=== PATIENT | male | born 1935 | race Caucasian/White ===

== ENCOUNTER 2021-03-17 13:51 | Outpatient (CLI) | payer OTHER, SELFPAY ==
--- NOTE | 2021-03-17 14:30 | CT_ITS ---
WS: [id number] CT CHEST TECHNIQUE: Noncontrast CT of the chest with coronal and sagittal reformatted images. CLINICAL INFORMATION: lymphadenopathy COMPARISON: None. DLP: 848.[address] scans at [facility] use at least one of these dose optimization techniques: automat ed exposure control; mA and/or kV adjustment per patient size (includes targeted exams where dose is matched to clinical indication); or iterative reconstruction. FINDINGS: Mild chronic emphysematous changes. No acute pulmonary infiltrates. No consolidation or pleural fluid . Calcified granulomas. Calcified right hilar nodes. Aortic calcification. Coronary calcification. No mediastinal or hilar lymphadenopathy. Tiny noncalcified nodule right upper lobe subpleural in loc ation measuring 2 mm. Noncalcified nodule along the right fissure measuring 4 mm. Hepatic granulomas. Splenic granulomas. Normal GE junction. Normal caliber upper abdominal aorta. Adr enal glands are normal. Mild thoracic kyphosis. Hypertrophic changes thoracic spine. CT/CT chest wo con 13400 IMPRESSION: 1. No acute pulmonary infiltrates. No focal pneumonia or pleural fluid. 2. No mediastinal or hilar lymphadenopathy. 3. Tiny noncalcified nodule right upper lobe measuring 2 mm. 4 mm noncalcified nodule along the right major fissure. Recommend 12 month follow-up.
== END 2021-03-17 13:52 | disposition home or self-care (01) ==
PROVIDERS: PCP Emergency Medicine Emergency Medical Services; Visit Provider Internal Medicine Pulmonary Disease
DX: R59.1 Generalized enlarged lymph nodes (principal); R91.1 Solitary pulmonary nodule
CPT/HCPCS: 71250

== ENCOUNTER → 2021-04-13 09:56 | Outpatient (BNVA) | payer OTHER, SELFPAY | PROVIDERS: PCP Emergency Medicine Emergency Medical Services; Visit Provider Internal Medicine Pulmonary Disease | DX: Z01.812 Encounter for preprocedural laboratory examination (principal); Z20.822 Contact with and (suspected) exposure to COVID-19 | CPT/HCPCS: 87635 ==

== ENCOUNTER 2021-04-18 10:33 | Outpatient (CLI) | payer OTHER, SELFPAY ==
--- NOTE | 2021-04-18 12:42 | PFTS_ITS ---
Date of Study:04/18/21 Date of Dictation: MECHANICS: Forced vital capacity (FVC) is reduced. Forced expiratory volume in one second (FEV1) is reduced. FEV1/FVC is reduced. FLOW VOLUME LOOP: Reduced flow at all lung volumes with significant scooping. LUNG VOLUMES: Total lung capacity (TLC) is normal. Residual volume (RV) is decreased. DIFFUSING CAPACITY FOR CARBON MONOXIDE: Mildly reduced. INTERPRETATION: The postbronchodilator spirometry is consistent with severe airflow obstruction. There is no significant postbronchodilator response. Lung volumes are consistent with air trapping. Gas exchange (DLCO) is mildly reduced. MTDD
== END 2021-04-18 10:34 | disposition home or self-care (01) ==
LOC: RT 10:37
PROVIDERS: PCP Emergency Medicine Emergency Medical Services; Visit Provider Internal Medicine Pulmonary Disease
DX: J44.9 Chronic obstructive pulmonary disease, unspecified (principal)
CPT/HCPCS: 94060; 94726; 94729; J7611

== ENCOUNTER → 2021-07-26 13:17 | Outpatient (BNVA) | payer OTHER, SELFPAY | PROVIDERS: PCP Emergency Medicine Emergency Medical Services; Visit Provider Internal Medicine | DX: I48.91 Unspecified atrial fibrillation (principal); I10 Essential (primary) hypertension; R07.9 Chest pain, unspecified | CPT/HCPCS: 80048; 83880 ==

== ENCOUNTER 2021-08-17 11:50 | Emergency (ER) | payer OTHER, SELFPAY ==
[2021-08-17] VITALS (7 sets, daily range): BP systolic 111–126; BP diastolic 54–73; PULSE 64–90; RESP 18–28; TEMP 36.7–36.9; O2SAT 94–97; BMI 22.8
--- NOTE | 2021-08-17 12:40 | XR_ITS ---
WS: [id number] Exam: XR chest 1V portable [id number] Date/Time of Exam: 08/17/2021 12:40 PM Reason For Exam: reports cough/cold like symptoms The lungs are hyperinflated and clear. No acute infiltrates. Scattered calcified granulomas in both l ungs. Cardiomediastinal structures are unremarkable. Regional bony elements are intact. XR/XR chest 1V portable [id number] IMPRESSION: 1. No acute cardiopulmonary finding. 2. Pulmonary hyperinflation which might indicate obstructive lung disease.
--- NOTE | 2021-08-17 12:40 | ED_ITS ---
Documented by User: LAKESHA Ace 08/17/21 14:32 HPI - Extremity Problem General: Chief complaint: Extremity Problem,Nontraumatic Stated complaint: SOB, LLE SWELLING/REDNESS--RULE OUT DVT P/[facility] Time Seen by Provider: 08/17/21 12:34 Source: patient Mode of arrival: ambulatory Limitations: no limitations History of Present Illness: HPI Narrative: Patient is a nice 86-year-old male with a history of atrial fibrillation COPD, and HTN here after he was sent here from Dr. Martin at the [place]. Patient states Dr. aMrtin sent him here secondary to left lower extremity pain, redness and swelling and a concern for a DVT. Patient tells me he chronically has lower extremity swelling. He takes furosemide daily. There is no documented history of CHF. Patient is not the greatest historian but seems to think that he has had the redness for at least a couple of days . No known injury or trauma. Patient tells me he does not feel any more so short of breath than his baseline from his COPD. He is not on oxygen. Patient tells me he does albuterol inhalers prn. Patient has not been running fevers. MD Complaint: extremity pain and extremity swelling Onset (ago): day(s) Location: left and lower extremity Radiation: none Relieving factors: nothing Exacerbating factors: nothing Associated symptoms: Deny chest pain or fever(s) Review of Systems Const: Denies: fever(s), chills, body aches, fatigue or malaise Eyes: Denies: change in vision or blurry vision ENMT: Reports: nasal discharge Card: Reports: edema and swelling of feet/ankles; Denies: chest pain, palpitations, irregular heart rhythm, lightheadedness, syncope or pre-syncope Resp: Reports: dyspnea (chronic-at baseline per patient) and non-productive cough; Denies: pain on inspiration or hemoptysis GI: Denies: abdominal pain, nausea, vomiting or diarrhea Musc: Reports: extremity pain and extremity swelling; Denies: neck pain, back pain, joint pain or joint swelling Skin/Breast: Reports: changes in skin color (L LE) Neuro: Denies: headache(s), numbness in extremities, weakness in extremities, sensory changes, difficulty walking or dizziness [facility] PFSH: Medical History (Updated 08/17/21 @ 14:23 by LAKESHA Ace) Atrial fibrillation Chronic obstructive pulmonary disease Essential hypertension Hypothyroidism Family History Father , heart attack Myocardial infarct Mother Myocardial infarct Social History Smoking and tobacco status: former smoker Quit status (tobacco): has quit using tobacco Year quit tobacco: 1975 [id number] Second hand smoke exposure: Yes Smoking risk assessment/counseling performed?: Yes Alcohol intake: never Lives independently: Yes Household members: none Marital status: / service: Yes Current occupational status: retired Pets and animals: Yes History of recent travel: No Current gender identity: Male Physical Exam Const: COMMON NORMALS: no acute distress, patient oriented x3, no limitations and alert GENERAL APPEARANCE: cooperative ORIENTATION/CONSCIOUSNESS: Yes awake, Yes oriented to person, Yes oriented to place and Yes oriented to time HENMT: COMMON NORMALS: normocephalic and atraumatic HEAD & SCALP: n ormocephalic and atraumatic Resp: COMMON NORMALS: normal respiratory effort EFFORT & INSPECTION: Yes tachypneic, No respiratory distress, No labored, No grunting, No stridor, No Actively coughing, No retractions and No uses accessory muscles AUSCULTATION: wheezes scattered wheezes OTHER: states he doesn't feel any more shortness of breath than usual; states he does prn albuterol inhaler at home Cardio: COMMON NORMALS: regular rate and regular rhythm RATE: regular rate RHYTHM: regular rhythm Extremity: OTHER: pt has bilateral L>R pitting edema; varicosities noted bilaterally; he has erythema/warmth to L lower portion of leg affecting anterior and lateral surfaces and into lateral foot; no lymphangitis present Neuro: NELSON COMA SCALE: document GCS findings [place] coma scale eye opening: Spontaneous [place] coma scale verbal response: Orientated [place] coma scale motor response: Obey commands [place] coma scale total score: 15 COMMON NORMALS: patient oriented x3 SENSORIUM/ORIENTATION: Yes alert, Yes oriented to person, Yes oriented to place and Yes oriented to time Skin: NARRATIVE SKIN EXAM: see extremity assessment for pertinent skin findings Course Consultations: Consultation #1: [facility] agrees with evaluation here and plan for re-ultrasound in 1-2 weeks. Confirms patient is on Pradaxa. Will treat for outpt cellulitis and follow up in office. Vital Signs: Vital signs: Vital Signs Temperature 98.3 F 08/17/21 14:46 Pulse Rate 64 08/17/21 14:46 Respiratory Rate 22 H 08/17/21 14:46 Blood Pressure 111/54 08/17/21 14:46 Pulse Oximetry 97 08/17/21 14:46 MDM - Extremity (Nontraumatic) MDM Narrative: Medical decision making narrative: Patient is a nice 86-year-old male here at the request of Dr. Martin from the [place] for evaluation of his left lower leg swelling and redness. Patient tells me he chronically has swelling to his bilateral lower extremities. He has noticed over the past few days swelling worsening to the left leg and has also noticed redness and warmth. Clinically leg appears cellulitic. Ultrasound of his lower extremity shows a superficial thrombus to his GSV but no DVT. Because this thrombus is within 3 cm of the saphenofemoral junction he would require anticoagulation however patient already takes Pradaxa twice daily. Verified with the [facility] that he is still taking this. Patient is not febrile or tachycardic. White count is 14.5. I think it is reasonable to treat him for an outpatient cellulitis at this time. He was given an initial IV vancomycin dose here. Will follow up with Dr. Martin at the [place] next week for re-evaluation and schedule repeat US imaging. He is not complaining of SOB at this time. CXR stable. BNP close to baseline. Lab Data: Labs: Lab Results 08/17/21 08/17/21 08/17/21 12:43 12:43 12:51 WBC 14.5 10^3/uL H 10 ^3/uL (4.0-10.0) RBC 5.10 10^6/uL 10^6 /uL (4.1-5.3) Hgb 14.4 g/dL g/dL (11.7-16.6) Hct 45.3 % % (42.0-52.0) MCV 88.8 fl fl (80-94) MCH 28.2 pg pg (28.0-34.0) MCHC 31.8 g/dL g/dL (30.0-36.0) RDW 15.8 % H % (12.1-15.1) Plt Count 220 10^3/cmm 10^3 /cmm (130-400) MPV 9.0 fL fL (7.4-10.4) Neut % (Auto) 86.6 % % Lymph % (Auto) 5.8 % % Baldwin % (Auto) 4.7 % % Eos % (Auto) 0.1 % % Baso % (Auto) 0.3 % % Neut # (Auto) 12.56 10^3/uL H 1 0^3/uL (1.8-7.7) Lymph # (Auto) 0.9 10^3/uL 10^3/ uL (0.8-4.8) Baldwin # (Auto) 0.7 10^3/uL 10^3/ uL (0.2-0.9) Eos # (Auto) 0.0 10^3/uL 10^3/ uL (0.0-0.8) Baso # (Auto) 0.1 10^3/uL 10^3/ uL (0.0-0.1) Nucleated RBC % (a uto) 0 % % Nucleated RBCs # 0.0 /100WBC /100W BC Sodium 136 mmol/L mmol/L (136-145) Potassium 4.4 mmol/L mmol/L (3.5-5.1) Chloride 99 mmol/L mmol/L (98-107) Carbon Dioxide 30 mmol/L H mmol/ L (22-29) Anion Gap 11.4 (5-19) BUN 18 mg/dL mg/dL (8-23) Creatinine 0.7 mg/dL mg/dL (0.7-1.2) GFR Calculation Not Reportable Glucose 88 mg/dL mg/dL (65-115) Calculated Osmolal ity 283 mOsm/kg L mOs m/kg (285-295) Calcium 8.6 mg/dL mg/dL (8.5-10.5) Total Bilirubin 0.6 mg/dL mg/dL (0.15-1.2) AST 12 U/L U/L (0-40) ALT 16 U/L U/L (0-41) Alkaline Phosphata se 67 IU/L IU/L (40-130) C-Reactive Protein 102.9 mg/L H mg/L (0.0-4.9) NT-Pro-B Natriuret Pep 630 pg/mL H pg/mL (0-450) Total Protein 5.9 g/dL L g/dL (6.6-8.7) Albumin 3.5 g/dL g/dL (3.5-5.2) Globulin 2.4 g/dL g/dL (1.3-4.6) SARS-CoV-2 Ag (Rap id) Negative (Negative) Imaging Data^: CXR: Radiologist's impression: [facility] HospitalHira [place], [place] [address]TXug ReportSigned Patient: Naseem Mckeon #: [id number]: 7Acct#:[id number]/Sex: 86 / MADM Date: 08/17/21Loc: ERRoom/Bed:Attending Dr: Ordering Provider/Ordering MD: Vanessa Patel Date of Service: 08/17/21 Procedure(s): XR chest 1V portable [id number] Accession Number(s): [id number] Report Number: [id number] WS: [id number] Exam: XR chest 1V portable [id number] Date/Time of Exam: 08/17/2021 12:40 PM Reason For Exam: reports cough/cold like symptoms The lungs are hyperinflated and clear. No acute infiltrates. Scattered calcified granulomas in both lungs. Cardiomediastinal structures are unremarkable. Regional bony elements are intact. XR/XR chest 1V portable [id number] IMPRESSION: 1. No acute cardiopulmonary finding. 2. Pulmonary hyperinflation which might indicate obstructive lung disease. Dictated By:Ron Yang, ABELigned By:Ron Yang, ABELigned Date/Time:08/17/21 1256DD/ 1253 L LE venous US: Radiologist's impression: [facility] HospitalHira [place], [place] [address]Wfobjidudr ReportSigned Patient: Naseem Mckeon #: [id number]: [id number]#:[id number]/Sex: 86 / MADM Date: 08/17/21Loc: ERRoom/Bed:Attending Dr: Ordering Provider/Ordering MD: Vanessa Patel Date of Service: 08/17/21 Procedure(s): [place] [id number] Accession Number(s): [id number] Report Number: [id number] Hao Mckeon Age: 86 Gender: M : 1935 Exam Date: 08/17/2021 13:04 Ordering Phys: Vanessa Patel Technologist: Exam Location: [facility] Indication: LLE PAIN HISTORY: Lower extremity swelling. Lower extremity edema. PROCEDURES: Venous duplex imaging was performed in only the left lower extremity. The following venous structures were evaluated: common femoral vein, profunda vein, proximal portion of the greater saphenous vein, superficial femoral vein, and the popliteal vein. In addition, the posterior tibial and peroneal trunk were evaluated. Serial compression, augmentation maneuvers, and spectral Doppler flow evaluation were performed. FINDINGS: Normal 2-D Doppler and augmentation and compressibility throughout the lower extremity venous structures. Additional imaging through the proximal calf veins also reveals no thrombus. Left LSV non-compressible from prox-dist. Thrombus ends 2.9 cm from CFV junction. CONCLUSIONS No DVT left lower extremity. Left GSV superficial thrombophlebitis, thrombus 2.9 cm from the CFV. Dr. Feli Gautam DO (Electronically Signed) Final Date: 17 August 2021 13:51 Discharge Plan Discharge Patient Disposition: Home Clinical Impression: Superficial thrombosis of left lower extremity, Cellulitis of left anterior lower leg Condition: Stable Prescriptions: New amoxicillin 500 mg capsule 500 mg PO BID 7 Days Qty: 14 RF: 0 doxycycline monohydrate 100 mg capsule 100 mg PO Q12H 7 Days Qty: 14 RF: 0 No Action cholecalciferol (vitamin D3) 25 mcg (1,000 unit) capsule 25 mcg PO DAILY RF: 0 diltiazem HCl 240 mg capsule,extended release 24hr 240 mg PO DAILY RF: 0 levothyroxine 125 mcg capsule 125 mcg PO DAILY RF: 0 meloxicam 7.5 mg tablet 7.5 mg PO DAILY RF: 0 metronidazole 0.75 % cream 1 applic topical DAILY RF: 0 prednisolone acetate 1 % drops,suspension 1 drp ophthalmic (eye) BID RF: 0 ipratropium-albuterol 0.5 mg-3 mg(2.5 mg base)/3 mL solution for nebulization 3 ml inhalation QID PRN (Reason: shortness of breath) Qty: 90 RF: 3 Combivent Respimat 20-100 mcg/actuation mist 1 puff inhalation Q6H PRN (Reason: shortness of breath or wheezing) Qty: 4 R F: 3 Spiriva Respimat 2.5 mcg/actuation mist 2 puff inhalation DAILY Qty: 4 RF: 3 furosemide 20 mg tablet 20 mg PO DAILY Qty: 90 RF: 2 amlodipine 5 mg tablet 5 mg PO DAILY Qty: 90 RF: 0 Pradaxa 150 mg capsule 150 mg PO BID Qty: 180 RF: 0 Discharge Orders: Discharge ED (Routine); Ordered 08/17/21 Ordered By: Vanessa Patel Referrals: Cooper Martin, [Primary Care Provider] - Patient Instructions: Cellulitis (ED), Superficial Thrombophlebitis (ED) Activity Restrictions/Additional Instructions: As we discussed please fill both of your antibiotics and start them today. Both antibiotics are for one pill twice daily. [facility] management will work [facility] As we discussed you need to return to the emergency department in 48 to 72 hours if redness on your leg continues to spread. You need to return sooner for severe pain, shortness of breath, difficulty breathing, fevers greater than 100.4, or any other concerns you may have. Coding Level of Care Code ED Substation Operator Helper for Chg Fwd Exam Detailed Documented by User: Driss Conrad MD 08/17/21 15:29 HPI - Extremity Problem General: Chief complaint: Extremity Problem,Nontraumatic Stated complaint: SOB, LLE SWELLING/REDNESS--RULE OUT DVT P/[facility] Time Seen by Provider: 08/17/21 12:34 PFSH ED PFSH: Medical History (Updated 08/17/21 @ 14:23 by LAKESHA Ace) Atrial fibrillation Chronic obstructive pulmonary disease Essential hypertension Hypothyroidism Family History Father , heart attack Myocardial infarct Mother Myocardial infarct Social History Smoking and tobacco status: former smoker Quit status (tobacco): has quit using tobacco Year quit tobacco: 1975 [id number] Second hand smoke exposure: Yes Smoking risk assessment/counseling performed?: Yes Alcohol intake: never Lives independently: Yes Household members: none Marital status: / service: Yes Current occupational status: retired Pets and animals: Yes History of recent travel: No Current gender identity: Male Course Vital Signs: Vital signs: Vital Signs Temperature 98.3 F 08/17/21 14:46 Pulse Rate 64 08/17/21 14:46 Respiratory Rate 22 H 08/17/21 14:46 Blood Pressure 111/54 08/17/21 14:46 Pulse Oximetry 97 08/17/21 14:46 MDM - Extremity (Nontraumatic) Lab Data: Labs: Lab Results 08/17/21 08/17/21 08/17/21 12:43 12:43 12:51 WBC 14.5 10^3/uL H 10 ^3/uL (4.0-10.0) RBC 5.10 10^6/uL 10^6 /uL (4.1-5.3) Hgb 14.4 g/dL g/dL (11.7-16.6) Hct 45.3 % % (42.0-52.0) MCV 88.8 fl fl (80-94) MCH 28.2 pg pg (28.0-34.0) MCHC 31.8 g/dL g/dL (30.0-36.0) RDW 15.8 % H % (12.1-15.1) Plt Count 220 10^3/cmm 10^3 /cmm (130-400) MPV 9.0 fL fL (7.4-10.4) Neut % (Auto) 86.6 % % Lymph % (Auto) 5.8 % % Baldwin % (Auto) 4.7 % % Eos % (Auto) 0.1 % % Baso % (Auto) 0.3 % % Neut # (Auto) 12.56 10^3/uL H 1 0^3/uL (1.8-7.7) Lymph # (Auto) 0.9 10^3/uL 10^3/ uL (0.8-4.8) Baldwin # (Auto) 0.7 10^3/uL 10^3/ uL (0.2-0.9) Eos # (Auto) 0.0 10^3/uL 10^3/ uL (0.0-0.8) Baso # (Auto) 0.1 10^3/uL 10^3/ uL (0.0-0.1) Nucleated RBC % (a uto) 0 % % Nucleated RBCs # 0.0 /100WBC /100W BC Sodium 136 mmol/L mmol/L (136-145) Potassium 4.4 mmol/L mmol/L (3.5-5.1) Chloride 99 mmol/L mmol/L (98-107) Carbon Dioxide 30 mmol/L H mmol/ L (22-29) Anion Gap 11.4 (5-19) BUN 18 mg/dL mg/dL (8-23) Creatinine 0.7 mg/dL mg/dL (0.7-1.2) GFR Calculation Not Reportable Glucose 88 mg/dL mg/dL (65-115) Calculated Osmolal ity 283 mOsm/kg L mOs m/kg (285-295) Calcium 8.6 mg/dL mg/dL (8.5-10.5) Total Bilirubin 0.6 mg/dL mg/dL (0.15-1.2) AST 12 U/L U/L (0-40) ALT 16 U/L U/L (0-41) Alkaline Phosphata se 67 IU/L IU/L (40-130) C-Reactive Protein 102.9 mg/L H mg/L (0.0-4.9) NT-Pro-B Natriuret Pep 630 pg/mL H pg/mL (0-450) Total Protein 5.9 g/dL L g/dL (6.6-8.7) Albumin 3.5 g/dL g/dL (3.5-5.2) Globulin 2.4 g/dL g/dL (1.3-4.6) SARS-CoV-2 Ag (Rap id) Negative (Negative) Discharge Plan Discharge Patient Disposition: Home Clinical Impression: Superficial thrombosis of left lower extremity, Cellulitis of left anterior lower leg Condition: Stable Prescriptions: New amoxicillin 500 mg capsule 500 mg PO BID 7 Days Qty: 14 RF: 0 doxycycline monohydrate 100 mg capsule 100 mg PO Q12H 7 Days Qty: 14 RF: 0 No Action cholecalciferol (vitamin D3) 25 mcg (1,000 unit) capsule 25 mcg PO DAILY RF: 0 diltiazem HCl 240 mg capsule,extended release 24hr 240 mg PO DAILY RF: 0 levothyroxine 125 mcg capsule 125 mcg PO DAILY RF: 0 meloxicam 7.5 mg tablet 7.5 mg PO DAILY RF: 0 metronidazole 0.75 % cream 1 applic topical DAILY RF: 0 prednisolone acetate 1 % drops,suspension 1 drp ophthalmic (eye) BID RF: 0 ipratropium-albuterol 0.5 mg-3 mg(2.5 mg base)/3 mL solution for nebulization 3 ml inhalation QID PRN (Reason: shortness of breath) Qty: 90 RF: 3 Combivent Respimat 20-100 mcg/actuation mist 1 puff inhalation Q6H PRN (Reason: shortness of breath or wheezing) Qty: 4 RF: 3 Spiriva Respimat 2.5 mcg/actuation mist 2 puff inhalation DAILY Qty: 4 RF: 3 furosemide 20 mg tablet 20 mg PO DAILY Qty: 90 RF: 2 amlodipine 5 mg tablet 5 mg PO DAILY Qty: 90 RF: 0 Pradaxa 150 mg capsule 150 mg PO BID Qty: 180 RF: 0 Discharge Orders: Discharge ED (Routine); Ordered 08/17/21 Ordered By: Vanessa Patel Referrals: Cooper Martin DO [Primary Care Provider] - Patient Instructions: Cellulitis (ED), Superficial Thrombophlebitis (ED) Activity Restrictions/Additional Instructions: As we discussed please fill both of your antibiotics and start them today. Both antibiotics are for one pill twice daily. Case management will work [facility] As we discussed you need to return to the emergency department in 48 to 72 hours if redness on your leg continues to spread. You need to return sooner for severe pain, shortness of breath, difficulty breathing, fevers greater than 100.4, or any other concerns you may have. Coding Level of Care Code ED Substation Operator Helper for Chg Fwd Exam Detailed
[2021-08-17 12:52] LABS: Basophils # 0.1 10^3/uL (0.0-0.1); Basophils % 0.3 %; Eosinophils % 0.1 %; Hematocrit 45.3 % (42.0-52.0); Hemoglobin 14.4 g/dL (11.7-16.6); Lymphocytes # 0.9 10^3/uL (0.8-4.8); Lymphocytes % 5.8 %; Mean Corpuscular HGB Conc 31.8 g/dL (30.0-36.0); Mean Corpuscular Hemoglobin 28.2 pg (28.0-34.0); Mean Corpuscular Volume 88.8 fl (80-94); Monocytes # 0.7 10^3/uL (0.2-0.9); Monocytes % 4.7 %; Neutrophils # 12.56 10^3/uL (1.8-7.7); Neutrophils % 86.6 %; Nucleated Red Blood Cells % 0 %; Platelet Count 220 10^3/cmm (130-400); Red Cell Distribution Width 15.8 % (12.1-15.1); White Blood Count 14.5 10^3/uL (4.0-10.0)
[2021-08-17 13:27] LABS: Alanine Aminotransferase 16 U/L (0-41); Albumin Level 3.5 g/dL (3.5-5.2); Alkaline Phosphatase 67 IU/L (40-130); Anion Gap 11.4 (5-19); Aspartate Amino Transferase 12 U/L (0-40); Blood Urea Nitrogen 18 mg/dL (8-23); C Reactive Protein 102.9 mg/L (0.0-4.9); Calcium 8.6 mg/dL (8.5-10.5); Carbon Dioxide 30 mmol/L (22-29); Chloride 99 mmol/L (98-107); Globulin 2.4 g/dL (1.3-4.6); Glucose 88 mg/dL (65-115); NT Pro B Type Natriuretic Pept 630 pg/mL (0-450); Osmolality Calculated 283 mOsm/kg (285-295); Potassium 4.4 mmol/L (3.5-5.1); Sodium 136 mmol/L (136-145); Total Bilirubin 0.6 mg/dL (0.15-1.2); Total Protein 5.9 g/dL (6.6-8.7)
[2021-08-17 13:27] LABS: SARS Covid-2 Antigen Negative (Negative)
[2021-08-17] MEDS: vancomycin 1,000 MG in sodium chloride 0.9% 250 ML 250 MG IV (13:44)
--- NOTE | 2021-08-18 12:45 | DCPLANNER ---
grain commodity manager had message to schedule a follow up appointment for patient with [facility]. grain commodity manager sent patients information to [facility]. February will let child welfare caseworker know if child welfare caseworker needs to do anything to schedule the appointment.
== END 2021-08-17 15:00 | disposition home or self-care (01) ==
PROVIDERS: Emergency Provider Physician Assistant; PCP Emergency Medicine Emergency Medical Services
DX: L03.116 Cellulitis of left lower limb (principal); I82.812 Embolism and thrombosis of superficial veins of left lower extremity; J44.9 Chronic obstructive pulmonary disease, unspecified; I10 Essential (primary) hypertension; Z87.891 Personal history of nicotine dependence; Z20.822 Contact with and (suspected) exposure to COVID-19
CPT/HCPCS: 36415; 71045; 80053; 83880; 85025; 86140; 87040; 87426; 93971; 94640; 96360; 99283; J3370; J7050; J7611

== ENCOUNTER 2021-08-20 10:24 | Inpatient (IN) | payer OTHER, MEDICARE, SELFPAY ==
[2021-08-20] VITALS (11 sets, daily range): BP systolic 118–150; BP diastolic 58–84; PULSE 71–88; RESP 15–28; TEMP 36.3–36.9; O2SAT 93–98; BMI 23.0
--- NOTE | 2021-08-20 10:59 | W.ED.EXTPRO ---
Documented by User: LAKESHA Castro 08/21/21 07:14 HPI - Extremity Problem General: Chief complaint: Extremity Problem,Nontraumatic Stated complaint: LEG SWELLING Time Seen by Provider: 08/20/21 10:48 History of Present Illness: HPI Narrative: Patient is an 86-year-old male comes to the ED with left leg swelling and pain. Patient was seen here in the ED back on August 17 and diagnosed with a superficial thrombophlebitis and cellulitis. Patient is currently on dabigatran, amoxicillin and doxycycline. Patient has been taking his meds accordingly and has still not seen any improvement. His pain in the left leg was so bad last night that he had trouble sleeping. Patient has a history of COPD and has a DuoNeb breathing treatments at home. Patient does not wear any oxygen at home. Associated symptoms: Deny chest pain, fever(s) or rash Review of Systems Const: Denies: fever(s), chills or fatigue Eyes: Denies: change in vision or eye discomfort ENMT: Denies: throat pain, odynophagia, nasal discharge or nasal congestion Card: Denies: chest pain, palpitations, edema, swelling of feet/ankles, dyspnea on exertion or orthopnea Resp: Denies: dyspnea, productive cough or non-productive cough GI: Denies: abdominal pain, nausea, vomiting, diarrhea, constipation or hematochezia : Denies: flank pain, difficulty urinating, dysuria or hematuria Musc: Reports: extremity pain (Left leg) and extremity swelling (Left leg); Denies: neck pain or back pain Skin/Breast: Denies: rash or new lesions Neuro: Denies: headache(s), numbness in extremities or weakness in extremities PFS ED PFSH: Medical History Atrial fibrillation Chronic obstructive pulmonary disease Essential hypertension Hypothyroidism Family History Father , heart attack Myocardial infarct Mother Myocardial infarct Social History Smoking and tobacco status: former smoker Quit status (tobacco): has quit using tobacco Year quit tobacco: 1975 [id number] Second hand smoke exposure: Yes Smoking risk assessment/counseling performed?: Yes Alcohol intake: never Lives independently: Yes Household members: none Marital status: / service: Yes Current occupational status: retired Pets and animals: Yes History of recent travel: No Current gender identity: Male Physical Exam Const: COMMON NORMALS: no acute distress, patient oriented x3 and alert GENERAL APPEARANCE: cooperative and comfortable HENMT: COMMON NORMALS: normocephalic HEAD & SCALP: normocephalic MOUTH: Normal oral and palatal mucosa present THROAT: posterior oropharynx normal and uvula midline OTHER: Patient has baseline hearing loss. You have to talk loud for patient to understand you. Eye: COMMON NORMALS: Equal, round and reactive pupils present PUPIL: Yes Equal, round and reactive pupils present Neck/C-Spine: COMMON NORMALS: supple GENERAL: Yes normal visual inspection Resp: COMMON NORMALS: normal respiratory effort, No retractions, No use of accessory muscles and clear to auscultation bilaterally AUSCULTATION: clear to auscultation bilaterally Cardio: COMMON NORMALS: regular rate, regular rhythm, S1 normal heart sound present, S2 normal heart sound present, No gallops present (Cardio), No clicks present (Cardio), No murmurs present (Cardio) and Peripheral pulses 2+ throughout RATE: regular rate RHYTHM: regular rhythm HEART SOUNDS: S1 normal heart sound present and S2 normal heart sound present PERIPHERAL PULSES: Peripheral pulses 2+ throughout GI: COMMON NORMALS: Normal to inspection, nondistended, normoactive bowel sounds present, Soft to palpation, non-tender and no masses PALPATION: Yes Soft to palpation : COMMON NORMALS: Yes no CVA tenderness BLADDER/KIDNEY EXAM: Yes no CVA tenderness Back/Pelvis: COMMON NORMALS: no CVA tenderness Extremity: GENERAL: Yes normal exam except as noted and Yes edema (Left leg 2+ pitting edema) Neuro: COMMON NORMALS: patient oriented x3 and moves all extremities SENSORIUM/ORIENTATION: Yes alert Skin: NARRATIVE SKIN EXAM: Left leg?lateral aspect has some erythema, warmth and swelling along with tenderness. Findings suggestive of cellulitis. GENERAL SKIN EXAM: dry skin Course Vital Signs: Vital signs: Vital Signs Temperature 97.5 F L 08/22/21 12:32 Pulse Rate 96 08/22/21 12:32 Respiratory Rate 19 H 08/22/21 12:32 Blood Pressure 120/67 08/22/21 12:32 Pulse Oximetry 92 08/22/21 12:32 MDM - Extremity (Nontraumatic) MDM Narrative: Medical decision making narrative: Patient is a 89-year-old male who comes to the ED with left lower leg cellulitis. Patient was seen here on August 17 and given a dose of IV Vanco and sent home on doxycycline and amoxicillin. Patient has been taking both medications accordingly and he has had no improvement. Patient returns to the ED after failing outpatient treatment. Vitals are stable. White blood cell count 11.5 and CRP of 67.2. The rest of the labs were unremarkable. I talked with Dr. Camejo about pt case and he agreed to have patient admitted for to treat his cellulitis and see failed outpatient treatment. Dr. Camejo contacted the hospitalist and had pt admitted. Lab Data: Attestation: I reviewed the patient's lab results. Labs: Lab Results 08/20/21 08/20/21 08/20/21 11:10 11:35 11:35 WBC 11.5 10^3/uL H 10 ^3/uL (4.0-10.0) RBC 4.75 10^6/uL 10^6 /uL (4.1-5.3) Hgb 13.4 g/dL g/dL (11.7-16.6) Hct 42.8 % % (42.0-52.0) MCV 90.1 fl fl (80-94) MCH 28.2 pg pg (28.0-34.0) MCHC 31.3 g/dL g/dL (30.0-36.0) RDW 15.5 % H % (12.1-15.1) Plt Count 195 10^3/cmm 10^3 /cmm (130-400) MPV 9.1 fL fL (7.4-10.4) Neut % (Auto) 79.1 % % Lymph % (Auto) 10.1 % % Brewster % (Auto) 8.1 % % Eos % (Auto) 1.0 % % Baso % (Auto) 0.3 % % Neut # (Auto) 9.11 10^3/uL H 10 ^3/uL (1.8-7.7) Lymph # (Auto) 1.2 10^3/uL 10^3/ uL (0.8-4.8) Brewster # (Auto) 0.9 10^3/uL 10^3/ uL (0.2-0.9) Eos # (Auto) 0.1 10^3/uL 10^3/ uL (0.0-0.8) Baso # (Auto) 0.0 10^3/uL 10^3/ uL (0.0-0.1) Nucleated RBC % (a uto) 0 % % Nucleated RBCs # 0.0 /100WBC /100W BC Specimen Type Sample Site ABG pH ABG pCO2 ABG pO2 ABG HCO3 ABG O2 Saturation ABG Base Excess Pietro Test A-a O2 Gradient Hematocrit Hgb O2 Saturation Carboxyhemoglobin Methemoglobin Total Hemoglobin Ionized Calcium O2 Delivery Device FiO2 Inspector Set Up And Lay Out ID Sodium 140 mmol/L mmol/L (136-145) Potassium 4.1 mmol/L mmol/L (3.5-5.1) Chloride 102 mmol/L mmol/L (98-107) Carbon Dioxide 32 mmol/L H mmol/ L (22-29) Anion Gap 10.1 (5-19) BUN 18 mg/dL mg/dL (8-23) Creatinine 0.8 mg/dL mg/dL (0.7-1.2) GFR Calculation Not Reportable Glucose 89 mg/dL mg/dL (65-115) Calculated Osmolal ity 291 mOsm/kg mOsm/ kg (285-295) Lactic Acid Calcium 8.9 mg/dL mg/dL (8.5-10.5) Total Bilirubin 0.8 mg/dL mg/dL (0.15-1.2) AST 13 U/L U/L (0-40) ALT 15 U/L U/L (0-41) Alkaline Phosphata se 59 IU/L IU/L (40-130) C-Reactive Protein 67.2 mg/L H mg/L (0.0-4.9) Total Protein 5.4 g/dL L g/dL (6.6-8.7) Albumin 3.3 g/dL L g/dL (3.5-5.2) Globulin 2.1 g/dL g/dL (1.3-4.6) Urine Color Yellow (Yellow) Urine Appearance Clear (CLEAR) Urine pH 6 (5-7) Ur Specific Gravit y 1.020 (1.005-1.030) Urine Protein Neg (Negative) Urine Glucose (UA) Norm (Normal) Urine Ketones Negative (Negative) Urine Blood Neg (Negative) Urine Nitrate Negative (Negative) Urine Bilirubin Neg (Negative) Urine Urobilinogen 4 mg/dL H mg/dL (Negative) Ur Leukocyte Monisha ase Negative (Negative) 08/20/21 08/20/21 11:35 14:17 WBC RBC Hgb Hct MCV MCH MCHC RDW Plt Count MPV Neut % (Auto) Lymph % (Auto) Brewster % (Auto) Eos % (Auto) Baso % (Auto) Neut # (Auto) Lymph # (Auto) Brewster # (Auto) Eos # (Auto) Baso # (Auto) Nucleated RBC % (a uto) Nucleated RBCs # Specimen Type Arterial Sample Site Radial, left ABG pH 7.45 (7.35-7.45) ABG pCO2 38.1 mmHg mmHg (35-45) ABG pO2 80.1 mmHg mmHg (80.0-100.0) ABG HCO3 26.4 mmol/L H mmo l/L (22-26) ABG O2 Saturation 97.2 ABG Base Excess 2.4 mmol/L H mmol /L (-2.0-2.0) Pietro Test Pos A-a O2 Gradient 2.8 mmHg L mmHg (5-10) Hematocrit 41.9 % L % (42-52) Hgb O2 Saturation 95.5 % % (95-100) Carboxyhemoglobin 1.3 %THgb %THgb (0.4-20.1) Methemoglobin 0.5 % % (0.4-1.5) Total Hemoglobin 13.7 g/dL L g/dL (14-18) Ionized Calcium 1.2 mmol/L mmol/L (1.1-1.4) O2 Delivery Device Room air FiO2 21.0 % % Inspector Set Up And Lay Out ID glc Sodium 139.0 mmol/L mmol /L (131-143) Potassium 4.0 mmol/L mmol/L (3.5-5.0) Chloride Carbon Dioxide Anion Gap BUN Creatinine GFR Calculation Glucose 106.0 mg/dL mg/dL (70-115) Calculated Osmolal ity Lactic Acid 0.8 mmol/L mmol/L (0.5-2.2) Calcium Total Bilirubin AST ALT Alkaline Phosphata se C-Reactive Protein Total Protein Albumin Globulin Urine Color Urine Appearance Urine pH Ur Specific Gravit y Urine Protein Urine Glucose (UA) Urine Ketones Urine Blood Urine Nitrate Urine Bilirubin Urine Urobilinogen Ur Leukocyte Monisha ase Imaging Data^: US Vascular: Attestation: I personally reviewed and interpreted this imaging study as follows: Radiologist's impression: [id number] [place], [place] [address]Hnbajsxrdn ReportSigned Patient: Nsaeem Mckeon #: [id number]: [id number]#:[id number]/Sex: 86 / MADM Date: 08/20/21Loc: ERRoom/Bed:Attending Dr: Ordering Provider/Ordering MD: Van Hernández Date of Service: 08/20/21 Procedure(s): [place] [address] Accession Number(s): [id number] Report Number: [id number] PROCEDURE INFORMATION: Exam: US Duplex Left Lower Extremity Veins, Limited Exam date and time: 08/20/2021 11:10 AM Age: 86 years old Clinical indication: Swelling (edema) of limb; Lower extremity, left; Patient HX: Prior exam done on 08-17-2021; Additional info: Left lower leg swelling TECHNIQUE: Imaging protocol: Real-time Duplex ultrasound of the Left Lower Extremity with 2-D muñoz scale, color Doppler flow and spectral waveform analysis with image documentation. Limited exam focused on the left lower extremity veins. COMPARISON: No relevant prior studies available. FINDINGS: Left deep veins: Unremarkable. The common femoral, femoral, proximal profunda femoral, popliteal, posterior tibial and peroneal veins are patent without thrombus. Normal compressibility, augmentation response and Doppler waveforms. Left superficial veins: Heterogeneously echogenic, nonocclusive thrombus in the greater saphenous vein below the knee. Saphenofemoral junction is patent without thrombus. Soft tissues: Subcutaneous edema in the calf. US/[place] [id number] IMPRESSION: 1. No sonographic evidence of deep vein thrombosis. 2. Heterogeneously echogenic, nonocclusive thrombus in the greater saphenous vein below the knee. Dictated By:Harman Oliver MDSigned By:Harman Oliver MDSigned Date/Time:08/20/21 1244DD/ 1243 CXR: Attestation: I personally reviewed and interpreted this imaging study as follows: Radiologist's impression: [id number] [facility], [place] [address]UHjx ReportSigned Patient: Naseem Mckeon #: [id number]: 1935cct#:[id number]/Sex: 86 / MADM Date: 08/20/21Loc: ERRoom/Bed:Attending Dr: Ordering Provider/Ordering MD: Van Hernández Date of Service: 08/20/21 Procedure(s): XR chest 1V portable [id number] Accession Number(s): [id number] Report Number: [id number] PROCEDURE INFORMATION: Exam: XR Chest Exam date and time: 08/20/2021 1:25 PM Age: 86 years old Clinical indication: Shortness of breath; Additional info: SOB TECHNIQUE: Imaging protocol: XR of the chest. Views: 1 view. COMPARISON: CR XR chest 1V portable [id number] 08/17/2021 12:47 PM FINDINGS: Lungs: Hyperinflated. Scattered calcified granulomata, similar to prior. Streaky opacities at the lung bases with blunting of the right costophrenic angle, likely secondary to atelectasis and/or scarring.No consolidation. Pleural spaces: Unremarkable. No pleural effusion. No pneumothorax. Heart/Mediastinum: Unremarkable. No cardiomegaly. Bones/joints: No acute osseous abnormality. Osteopenia. Degenerative changes of the spine and shoulders. XR/XR chest 1V portable [id number] IMPRESSION: No acute radiographic findings. Dictated By:Harman Oliver MDSigned By:Harman Oliver MDSigned Date/Time:08/20/21 1429DD/ 1428 Discharge Plan Discharge Patient Disposition: Admitted As Inpatient Admit Provider: Quyen Dahl Clinical Impression: Cellulitis of left anterior lower leg Condition: Stable Discharge Diet: Cardiac Discharge Activity: Use walker/crutches as instructed and As per PT/OT instructions Sign Out Sign Out Data: Patient Sign Out occurred on 08/20/21 at 17:38. Patient's care was discussed, and care was transferred from to Lorne Camejo MD. Coding Level of Care Code ED Vessel Traffic Officer for Chg Fwd Exam Comprehensive Documented by User: Lorne Camejo MD 08/23/21 12:22 HPI - Extremity Problem General: Chief complaint: Extremity Problem,Nontraumatic Stated complaint: LEG SWELLING Time Seen by Provider: 08/20/21 10:48 [facility] ED PFSH: Medical History Atrial fibrillation Chronic obstructive pulmonary disease Essential hypertension Hypothyroidism Family History Father , heart attack Myocardial infarct Mother Myocardial infarct Social History Smoking and tobacco status: former smoker Quit status (tobacco): has quit using tobacco Year quit tobacco: 1975 [id number] Second hand smoke exposure: Yes Smoking risk assessment/counseling performed?: Yes Alcohol intake: never Lives independently: Yes Household members: none Marital status: / service: Yes Current occupational status: retired Pets and animals: Yes History of recent travel: No Current gender identity: Male Course Vital Signs: Vital signs: Vital Signs Temperature 97.5 F L 08/22/21 12:32 Pulse Rate 96 08/22/21 12:32 Respiratory Rate 19 H 08/22/21 12:32 Blood Pressure 120/67 08/22/21 12:32 Pulse Oximetry 92 08/22/21 12:32 MDM - Extremity (Nontraumatic) MDM Narrative: Medical decision making narrative: I discussed the case with LAKESHA Castro. I have reviewed the above documentation and reperformed miramontes parts of ED encounter. Patient requires admission for cellulitis that failed outpatient therapy. Lorne Camejo MD Emergency Medicine Lab Data: Labs: Lab Results 08/20/21 08/20/21 08/20/21 11:10 11:35 11:35 WBC 11.5 10^3/uL H 10 ^3/uL (4.0-10.0) RBC 4.75 10^6/uL 10^6 /uL (4.1-5.3) Hgb 13.4 g/dL g/dL (11.7-16.6) Hct 42.8 % % (42.0-52.0) MCV 90.1 fl fl (80-94) MCH 28.2 pg pg (28.0-34.0) MCHC 31.3 g/dL g/dL (30.0-36.0) RDW 15.5 % H % (12.1-15.1) Plt Count 195 10^3/cmm 10^3 /cmm (130-400) MPV 9.1 fL fL (7.4-10.4) Neut % (Auto) 79.1 % % Lymph % (Auto) 10.1 % % Brewster % (Auto) 8.1 % % Eos % (Auto) 1.0 % % Baso % (Auto) 0.3 % % Neut # (Auto) 9.11 10^3/uL H 10 ^3/uL (1.8-7.7) Lymph # (Auto) 1.2 10^3/uL 10^3/ uL (0.8-4.8) Brewster # (Auto) 0.9 10^3/uL 10^3/ uL (0.2-0.9) Eos # (Auto) 0.1 10^3/uL 10^3/ uL (0.0-0.8) Baso # (Auto) 0.0 10^3/uL 10^3/ uL (0.0-0.1) Nucleated RBC % (a uto) 0 % % Nucleated RBCs # 0.0 /100WBC /100W BC Specimen Type Sample Site ABG pH ABG pCO2 ABG pO2 ABG HCO3 ABG O2 Saturation ABG Base Excess Pietro Test A-a O2 Gradient Hematocrit Hgb O2 Saturation Carboxyhemoglobin Methemoglobin Total Hemoglobin Ionized Calcium O2 Delivery Device FiO2 Inspector Set Up And Lay Out ID Sodium 140 mmol/L mmol/L (136-145) Potassium 4.1 mmol/L mmol/L (3.5-5.1) Chloride 102 mmol/L mmol/L (98-107) Carbon Dioxide 32 mmol/L H mmol/ L (22-29) Anion Gap 10.1 (5-19) BUN 18 mg/dL mg/dL (8-23) Creatinine 0.8 mg/dL mg/dL (0.7-1.2) GFR Calculation Not Reportable Glucose 89 mg/dL mg/dL (65-115) Calculated Osmolal ity 291 mOsm/kg mOsm/ kg (285-295) Lactic Acid Calcium 8.9 mg/dL mg/dL (8.5-10.5) Total Bilirubin 0.8 mg/dL mg/dL (0.15-1.2) AST 13 U/L U/L (0-40) ALT 15 U/L U/L (0-41) Alkaline Phosphata se 59 IU/L IU/L (40-130) C-Reactive Protein 67.2 mg/L H mg/L (0.0-4.9) Total Protein 5.4 g/dL L g/dL (6.6-8.7) Albumin 3.3 g/dL L g/dL (3.5-5.2) Globulin 2.1 g/dL g/dL (1.3-4.6) Urine Color Yellow (Yellow) Urine Appearance Clear (CLEAR) Urine pH 6 (5-7) Ur Specific Gravit y 1.020 (1.005-1.030) Urine Protein Neg (Negative) Urine Glucose (UA) Norm (Normal) Urine Ketones Negative (Negative) Urine Blood Neg (Negative) Urine Nitrate Negative (Negative) Urine Bilirubin Neg (Negative) Urine Urobilinogen 4 mg/dL H mg/dL (Negative) Ur Leukocyte Monisha ase Negative (Negative) 08/20/21 08/20/21 11:35 14:17 WBC RBC Hgb Hct MCV MCH MCHC RDW Plt Count MPV Neut % (Auto) Lymph % (Auto) Brewster % (Auto) Eos % (Auto) Baso % (Auto) Neut # (Auto) Lymph # (Auto) Brewster # (Auto) Eos # (Auto) Baso # (Auto) Nucleated RBC % (a uto) Nucleated RBCs # Specimen Type Arterial Sample Site Radial, left ABG pH 7.45 (7.35-7.45) ABG pCO2 38.1 mmHg mmHg (35-45) ABG pO2 80.1 mmHg mmHg (80.0-100.0) ABG HCO3 26.4 mmol/L H mmo l/L (22-26) ABG O2 Saturation 97.2 ABG Base Excess 2.4 mmol/L H mmol /L (-2.0-2.0) Pietro Test Pos A-a O2 Gradient 2.8 mmHg L mmHg (5-10) Hematocrit 41.9 % L % (42-52) Hgb O2 Saturation 95.5 % % (95-100) Carboxyhemoglobin 1.3 %THgb %THgb (0.4-20.1) Methemoglobin 0.5 % % (0.4-1.5) Total Hemoglobin 13.7 g/dL L g/dL (14-18) Ionized Calcium 1.2 mmol/L mmol/L (1.1-1.4) O2 Delivery Device Room air FiO2 21.0 % % Inspector Set Up And Lay Out ID glc Sodium 139.0 mmol/L mmol /L (131-143) Potassium 4.0 mmol/L mmol/L (3.5-5.0) Chloride Carbon Dioxide Anion Gap BUN Creatinine GFR Calculation Glucose 106.0 mg/dL mg/dL (70-115) Calculated Osmolal ity Lactic Acid 0.8 mmol/L mmol/L (0.5-2.2) Calcium Total Bilirubin AST ALT Alkaline Phosphata se C-Reactive Protein Total Protein Albumin Globulin Urine Color Urine Appearance Urine pH Ur Specific Gravit y Urine Protein Urine Glucose (UA) Urine Ketones Urine Blood Urine Nitrate Urine Bilirubin Urine Urobilinogen Ur Leukocyte Monisha ase Discharge Plan Discharge Patient Disposition: Admitted As Inpatient Admit Provider: Quyen Dahl Clinical Impression: Cellulitis of left anterior lower leg Condition: Stable Discharge Diet: Cardiac Discharge Activity: Use walker/crutches as instructed and As per PT/OT instructions Sign Out Sign Out Data: Patient Sign Out occurred on 08/20/21 at 17:38. Patient's care was discussed, and care was transferred from to Lorne Camejo MD. Coding Level of Care Code ED Vessel Traffic Officer for g Fwd Exam Comprehensive
--- NOTE | 2021-08-20 11:10 | USR_ITS ---
PROCEDURE INFORMATION: Exam: US Duplex Left Lower Extremity Veins, Limited Exam date and time: 08/20/2021 11:10 AM Age: 86 years old Clinical indication: Swelling (edema) of limb; Lower extremity, left; Patient HX: Prior exam done on 08-17-2021; Additional info: Left lower leg swelling TECHNIQUE: Imaging protocol: Real-time Duplex ultrasound of the Left Lower Extremity with 2-D muñoz scale, color Doppler flow and spectral waveform analysis with image documentation. Limited exam focused on the left lower extremity veins. COMPARISON: No relevant prior studies available. FINDINGS: Left deep veins: Unremarkable. The common femoral, femoral, proximal profunda femoral, popliteal, posterior tibial and peroneal veins are patent without thrombus. Normal compressibility, augmentation response and Doppler waveforms. Left superficial veins: Heterogeneously echogenic, nonocclusive thrombus in the greater saphenous vein below the knee. Saphenofemoral junction is patent without thrombus. Soft tissues: Subcutaneous edema in the calf. US/CV venous duplex [facility] [id number] IMPRESSION: 1. No sonographic evidence of deep vein thrombosis. 2. Heterogeneously echogenic, nonocclusive thrombus in the greater saphenous vein below the knee.
[2021-08-20] MEDS: ipratropium-albuterol 3 mL Neb 6 ML INHALATION (11:38)
[2021-08-20 11:46] LABS: Basophils % 0.3 %; Eosinophils # 0.1 10^3/uL (0.0-0.8); Hematocrit 42.8 % (42.0-52.0); Hemoglobin 13.4 g/dL (11.7-16.6); Lymphocytes # 1.2 10^3/uL (0.8-4.8); Lymphocytes % 10.1 %; Mean Corpuscular HGB Conc 31.3 g/dL (30.0-36.0); Mean Corpuscular Hemoglobin 28.2 pg (28.0-34.0); Mean Corpuscular Volume 90.1 fl (80-94); Mean Platelet Volume 9.1 fL (7.4-10.4); Monocytes # 0.9 10^3/uL (0.2-0.9); Monocytes % 8.1 %; Neutrophils # 9.11 10^3/uL (1.8-7.7); Neutrophils % 79.1 %; Nucleated Red Blood Cells % 0 %; Platelet Count 195 10^3/cmm (130-400); Red Blood Count 4.75 10^6/uL (4.1-5.3); Red Cell Distribution Width 15.5 % (12.1-15.1); White Blood Count 11.5 10^3/uL (4.0-10.0)
[2021-08-20 12:15] LABS: Alanine Aminotransferase 15 U/L (0-41); Albumin Level 3.3 g/dL (3.5-5.2); Alkaline Phosphatase 59 IU/L (40-130); Anion Gap 10.1 (5-19); Aspartate Amino Transferase 13 U/L (0-40); Blood Urea Nitrogen 18 mg/dL (8-23); C Reactive Protein 67.2 mg/L (0.0-4.9); Calcium 8.9 mg/dL (8.5-10.5); Carbon Dioxide 32 mmol/L (22-29); Chloride 102 mmol/L (98-107); Creatinine Clr Calc Pharmacy 75.2543; Globulin 2.1 g/dL (1.3-4.6); Glucose 89 mg/dL (65-115); Osmolality Calculated 291 mOsm/kg (285-295); Potassium 4.1 mmol/L (3.5-5.1); Sodium 140 mmol/L (136-145); Total Bilirubin 0.8 mg/dL (0.15-1.2); Total Protein 5.4 g/dL (6.6-8.7)
[2021-08-20 13:15] LABS: Lactic Sepsis W/Reflex 0.8 mmol/L (0.5-2.2)
--- NOTE | 2021-08-20 13:25 | XRR_ITS ---
PROCEDURE INFORMATION: Exam: XR Chest Exam date and time: 08/20/2021 1:25 PM Age: 86 years old Clinical indication: Shortness of breath; Additional info: SOB TECHNIQUE: Imaging protocol: XR of the chest. Views: 1 view. COMPARISON: CR XR chest 1V portable [id number] 08/17/2021 12:47 PM FINDINGS: Lungs: Hyperinflated. Scattered calcified granulomata, similar to prior. Streaky opacities at the lung bases with blunting of the right costophrenic angle, likely secondary to atelectasis and/or scarring.No consolidation. Pleural spaces: Unremarkable. No pleural effusion. No pneumothorax. Heart/Mediastinum: Unremarkable. No cardiomegaly. Bones/joints: No acute osseous abnormality. Osteopenia. Degenerative changes of the spine and shoulders. XR/XR chest 1V portable [id number] IMPRESSION: No acute radiographic findings.
[2021-08-20] MEDS: cefTRIAXone 2,000 MG in sodium chloride 0.9% (plus) 50 ML 100 MG IV (13:55)
[2021-08-20] MEDS: HYDROcodone-acetaminophen 5-325 mg Tablet 1 TAB PO (14:02)
--- NOTE | 2021-08-20 14:02 | PC.NURSE ---
Pt reports having blood in stool , states its light red.
[2021-08-20 14:10] LABS: Add Urine Microscopic? NO; Charge for UA Resulting for Rev
[2021-08-20 14:14] LABS: Bilirubin Urine Neg (Negative); Blood Urine Neg (Negative); Glucose Urine UA Norm (Normal); Ketones Urine Negative (Negative); Nitrate Urine Negative (Negative); Protein Urine Neg (Negative); Urine Appearance Clear (CLEAR); Urine Color Yellow (Yellow); pH Urine 6 (5-7)
[2021-08-20 14:15] LABS: Leukocyte Esterase Urine Negative (Negative); Urobilinogen Urine 4 mg/dL (Negative)
[2021-08-20 14:29] LABS: ABG PCO2 38.1 mmHg (35-45); ABG PH Result 7.45 (7.35-7.45); Alveolar-Arterial Oxygen Gradi 2.8 mmHg (5-10); Arterial Blood Gas Hematocrit 41.9 % (42-52); Base Excess ABG 2.4 mmol/L (-2.0-2.0); Blood Gas Allen Test Pos; Blood Gas Operator Identificat glc; Blood Gas Sample Site Radial, left; Blood Gas Sample Type Arterial; Carboxyhemoglobin 1.3 %THgb (0.4-20.1); HCO3 ABG 26.4 mmol/L (22-26); HGB O2 Sat 95.5 % (95-100); Ionized Calcium Level - ABG 1.2 mmol/L (1.1-1.4); Methemoglobin 0.5 % (0.4-1.5); Oxygen Device ROOM AIR; Oxygen Saturation ABG 97.2; PO2 ABG 80.1 mmHg (80.0-100.0); Total Hemoglobin 13.7 g/dL (14-18)
--- NOTE | 2021-08-20 15:31 | P.HP_ITS ---
Providers/Chief Complaint Primary Care Provider: Cooper Martin DO Chief Complaint: LEG SWELLING History of Present Illness Hao Mckeon is a 86 year old male with history of COPD, hypertension, decreased hearing, atrial fibrillation presents to the emergency department with left leg swelling and pain. He currently takes Pradaxa for his atrial fibrillation. Of note he did present to the ED on August 17, 2021 for the [facility] complaint lower extremity pain redness swelling and concern for DVT. He does state that he has chronic lower extremity swelling. He takes furosemide daily. There is no documented history of CHF. Ultrasound left lower extremity was done which showed superficial thrombus to great saphenous vein but no DVT. He was not febrile or tachycardic. White count 14.5. He was given amoxicillin 500 mg twice daily for 7 days and doxycycline 100 mg twice daily for 7 days as well. Today he presents again to the hospital stating that he has not seen any improvement but has been taking his medications on time. He states his left leg was hurting so much that he had trouble sleeping. He also states he has been feeling abit feverish. He lives alone. Has had a cough as well and experiencing some shortness of breath. ED course: On arrival blood pressure 130/78, pulse ox 98%, respiratory rate 15, pulse rate 88, temperature 98.4. Ultrasound was repeated today which showed no evidence of DVT. There is a nonocclusive thrombus in the greater saphenous vein below the knee. Patient was given 1 dose of ceftriaxone IV and doxycycline. Review of Systems General: Reports: 10 or more systems reviewed and unremarkable except in HPI and below Medications/Allergies Home Medications Medication Instructions Recorded Confirmed Last Taken Type cholecalciferol (vitamin D3) 25 25 mcg PO DAILY 03/06/21 08/20/21 08/20/21 History mcg (1,000 unit) capsule diltiazem HCl 240 mg 240 mg PO DAILY 03/06/21 08/20/21 08/20/21 History capsule,extended release 24 hr levothyroxine 125 mcg capsule 125 mcg PO DAILY 03/06/21 08/20/21 08/20/21 History ipratropium 0.5 mg-albuterol 3 mg 3 ml INHALATION QID PRN #90 ml 07/26/2102/05 Unknown Rx (2.5 mg base)/3 mL nebulization soln ipratropium 20 mcg-albuterol 100 1 puff INHALATION Q6H PRN #4 g 07/26/21 08/20/21 Unknown Rx mcg/actuation mist for inhalation meloxicam 7.5 mg tablet 7.5 mg PO DAILY 07/26/21 08/20/21 08/20/21 History metronidazole 0.75 % topical cream 1 applic TOPICAL DAILY 07/26/21 08/20/21 Unknown History prednisolone acetate 1 % eye 1 drp OPHTHALMIC (EYE) BID ml 07/26/21 08/20/21 Unknown History drops,suspension tiotropium bromide 2.5 2 puff INHALATION DAILY #4 g 07/26/21 08/20/21 08/20/21 Rx mcg/actuation mist for inhalation furosemide 20 mg tablet 20 mg PO DAILY #90 tab 08/02/21 08/20/21 Unknown Rx amlodipine 5 mg tablet 5 mg PO DAILY #90 tab 08/03/21 08/20/21 08/20/21 Rx dabigatran etexilate 150 mg capsule 150 mg PO BID #180 cap 08/03/21 08/20/21 08/20/21 Rx amoxicillin 500 mg PO BID 7 Days #14 cap 08/17/21 08/20/21 08/20/21 Rx doxycycline monohydrate 100 mg PO Q12H 7 Days #14 cap 08/17/21 08/20/21 08/20/21 Rx Allergies Allergy/AdvReac Type Severity Reaction Status Date / Time iodine Allergy Unknown Unknown Verified 08/20/21 16:20 PFSH Acute PFSH: Medical History Atrial fibrillation Chronic obstructive pulmonary disease Essential hypertension Hypothyroidism Family History Father , heart attack Myocardial infarct Mother Myocardial infarct Social History Smoking and tobacco status: former smoker Quit status (tobacco): has quit using tobacco Year quit tobacco: 1975 [id number] Second hand smoke exposure: Yes Smoking risk assessment/counseling performed?: Yes Alcohol intake: never Lives independently: Yes Household members: none Marital status: / service: Yes Current occupational status: retired Pets and animals: Yes History of recent travel: No Current gender identity: Male Vitals/I&O/Wt Last Vital Signs Temp 98.4 F 08/20/21 10:38 Pulse 88 08/20/21 12:18 Resp 15 08/20/21 12:18 BP 130/78 08/20/21 12:18 Pulse Ox 98 08/20/21 12:18 Weight last 48 hrs Weight 77.111 kg Physical Exam Narrative: EXAM NARRATIVE: General: Alert oriented x3, patient seen in room 6 in the ER. Hard of hearing. HEENT: Normocephalic, atraumatic, EOMI, desaturating on room air. I will place him on NC Cardio: Regular rate rhythm, normal S1-S2, no murmurs rubs gallops, Respiratory: Diminished bilateral air entry, has some ronchi at bases. GI: Abdomen soft, nontender, nondistended, bowel sounds + Behavior: Appropriate and cooperative Extremities: Left leg laterally has some erythema, warmth and swelling along with tenderness. Skin is dry appearing. He does have 2+ pitting edema in the left leg. It has been marked with a marker. Data : 08/20/21 11:35 08/20/21 11:35 A&P Assessment and plan (1) Cellulitis of left anterior lower leg: Status: Acute (2) Superficial thrombosis of left lower extremity: Status: Acute (3) Essential hypertension: Status: Acute (4) Atrial fibrillation: Status: Acute (5) Hard of hearing: Status: Acute Qualifiers: Hearing loss type: unspecified Laterality: bilateral Qualified Code(s): H91.93 - Unspecified hearing loss, bilateral Additional A&P Information I will check CT scan left leg to look for air and soft tissue. Will check CRP, ESR. Rule out osteomyelitis. Patient is allergic to contrast dye. We will stop outpatient amoxicillin doxycycline and start patient on vancomycin IV and Zosyn. We will de-escalate as able to. Possible COPD exacerbation: Already being covered with antibiotics. Will order duoneb q4 hrs. Will put him on NC as well and wean off as able. Will do p rednisone 40 mg daily. Superficial thrombosis of left lower extremity: Patient is already on Pradaxa Essential hypertension: We will continue amlodipine 5 mg daily Atrial fibrillation: Patient on Pradaxa and Cardizem 240 daily. We will continue. Hypothyroidism: Continue Synthroid 125 daily. Fluids: Patient has history of CHF will be cautious with fluids. No IV fluids for now Electrolytes: Replete as needed Nutrition: Cardiac diet Activity: As tolerated DVT prophylaxis: Patient already on Pradaxa. Attestations Medical Necessity Statement*: requires IV antibiotics Time Spent in Patient Care: 16 - 35 minutes Coding Level of Care Code Acute Adoption Coordinator for [facility] Fwd Diagnoses Cellulitis of left anterior lower leg L03.116 Superficial thrombosis of left lower extremity I82.812 Essential hypertension I10 Atrial fibrillation I48.91 Hard of hearing H91.93 Hearing loss type: unspecified Laterality: bilateral
--- NOTE | 2021-08-20 15:56 | CTR_ITS ---
PROCEDURE INFORMATION: Exam: CT Left Lower Extremity Without Contrast; Lower Leg Exam date and time: 08/20/2021 3:56 PM Age: 86 years old Clinical indication: Pain; Lower leg; Left; Additional info: Rule out osteomyelitis, PT is very hard of hearing states he had a problem contrast in the past -^dr [place] aware change to non contrast TECHNIQUE: Imaging protocol: CT of the Left lower extremity without contrast was performed. Exam focused on the lower leg. Axial, coronal and sagittal reformatted images were created and reviewed. Radiation optimization: All CT scans at this facility use at least one of these dose optimization techniques: automated exposure control; mA and/or kV adjustment per patient size (includes targeted exams where dose is matched to clinical indication); or iterative reconstruction. COMPARISON: US CV venous duplex [facility] [id number] 08/20/2021 12:02 PM RADIATION DOSE METRICS: Total DLP (mGy-cm): 1150.54 FINDINGS: Limitations: Somewhat limited examination due to the lack of intravenous contrast. Bones/joints: Osteopenia. No CT evidence of acute fracture or dislocation. Mild chronic appearing fragmentation along the undersurface of the medial malleolus, suggestive of remote trauma. Mild degenerative changes. No erosive or destructive changes. No lytic or blastic lesion. Plantar calcaneal spur. Trace suprapatellar effusion. Soft tissues: Diffuse subcutaneous edema with overlying skin thick, most confluent about the ankle. No convincing organized collection. Deep intramuscular fat planes grossly clear. No soft tissue mass. Mild enthesopathy at the Achilles insertion. Vasculature: Severe atherosclerotic disease. CT/CT lower leg LT wo con* [id number] IMPRESSION: 1. Limited noncontrast examination. 2. Cellulitis. No definite organized collection. No CT evidence of acute osteomyelitis. 3. Additional findings, as above. Radiation Dose CTDIVOL = (mGy): DLP = 1150.54 (mGy-cm)
[2021-08-20 17:40] LABS: SARS Covid-2 Antigen Negative (Negative)
--- NOTE | 2021-08-20 19:17 | PC.PHAR ---
Vancomycin is dosed at 1gm IVPB every 12 hours to produce a predicted trough level of 15.55 (population based pharmacokinetic analysis). A trough level has been ordered from the lab to be obtained before the fourth dose to confirm and adjust if needed. The Zosyn is dosed at 3.375gm IVPB every 8 hours on the basis of the creatinine clearance of 75.25.
[2021-08-20] MEDS: piperacillin-tazobactam 3.375 GM in sodium chloride 0.9% (plus) 50 ML IV (19:26)
[2021-08-20] MEDS: prednisoLONE 1% Op Susp 5 mL Btl 1 DROP EYE-BOTH (19:33)
[2021-08-20] MEDS: budesonide 0.5 mg/2 mL Neb INHALATION (20:54)
[2021-08-20] MEDS: ipratropium-albuterol 3 mL Neb INHALATION (20:54)
--- NOTE | 2021-08-20 21:24 | PC.NURSE ---
i reported low temp 97.3
[2021-08-21] VITALS (12 sets, daily range): BP systolic 115–142; BP diastolic 60–80; PULSE 68–104; RESP 16–20; TEMP 36.6–36.7; O2SAT 92–96
[2021-08-21] MEDS: ipratropium-albuterol 3 mL Neb INHALATION ×6 (00:23→21:15)
[2021-08-21] MEDS: piperacillin-tazobactam 3.375 GM in sodium chloride 0.9% (plus) 50 ML IV ×2 (03:06→11:52)
--- NOTE | 2021-08-21 05:20 | PC.NURSE ---
patient A&O x4, hard of hearing, hearing aid not present, pleasant and cooperative, refuses 02 due to smell makes me sick, it stinks , respiratory therapy gave patient a mask and patient uses 02 off and on throughout the night.
[2021-08-21] MEDS: dilTIAZem ER (24HR) 240 mg Capsule PO (08:55)
[2021-08-21] MEDS: levothyroxine 125 mcg Tablet PO (08:56)
[2021-08-21] MEDS: FUROsemide 20 mg Tablet PO (08:56)
[2021-08-21] MEDS: amlodipine 5 mg Tablet PO (08:56)
[2021-08-21] MEDS: cholecalciferol (vitamin D3) 1,000 unit Tablet 1000 UNIT PO (08:56)
[2021-08-21] MEDS: budesonide 0.5 mg/2 mL Neb INHALATION ×2 (09:00→21:15)
[2021-08-21] MEDS: prednisoLONE 1% Op Susp 5 mL Btl 1 DROP EYE-BOTH ×2 (09:35→17:07)
[2021-08-21] MEDS: HYDROcodone-acetaminophen 5-325 mg Tablet 1 TAB PO (09:35)
--- NOTE | 2021-08-21 11:33 | USCV_ITS ---
Teravivian Hao Age: 86 Gender: M : 1935 Exam Date: 08/21/2021 15:42 Ordering Phys: Linda Vick MD Technologist: Tanesha Calhoun Exam Location: [facility] Indication: PAD Risk Factors: Previous Vascular Surgery: RIGHT LEFT BP: / BP: 119.0/ 77.00 0 Waveform Velocity (cm/s) Velocity (cm/s) Waveform Iliac Prox 57.7 Triphasic Iliac Mid 57.7 Triphasic Iliac Distal 53.3 Triphasic MORNING SHOW PRODUCER 118.0 Triphasic SFA Prox 47.0 Triphasic SFA Mid 100.8 Triphasic SFA Dist 104.7 Triphasic POP 67.3 Triphasic TOE STAPLER 65.1 Triphasic DPA 19.8 Monophasic FINDINGS Unable to tolerate pressure cuff on left calf due to extreme pain. SILVIA could not be performed Mild to moderate diffuse plaques are noted in the superficial femoral artery on the left side. Minimal plaques were noted in the iliac artery on the left side. CONCLUSIONS 1. Patent iliac, femoral, popliteal and infrapopliteal vessels on the left side. 2. Mild to moderate diffuse plaque in the left superficial femoral artery 3. Abnormal Doppler waveform in the dorsalis pedis artery on the left side suggestive of obstructive arterial disease. Possibly no significant obstructive disease in the other vessels The SILVIA could not be obtained. No similar previous studies are available for comparison Dr Cecilia Velasquez MD [facility] (Electronically Signed) Final Date: 23 August 2021 10:07 S
[2021-08-21 14:14] LABS: Vancomycin Trough 6.6 ug/mL (10-15)
[2021-08-21] MEDS: vancomycin 1,000 MG in sodium chloride 0.9% 250 ML 250 MG IV (14:32)
[2021-08-21] MEDS: lidocaine 2% viscous 15 ML, aluminum-mag hydrox-simethicon 30 ML, sucralfate oral liq 1 GM PO (16:09)
--- NOTE | 2021-08-21 17:57 | PM.PN ---
Subjective Subjective: Interval history: Patient was seen in the room this morning, he was complaining of left leg pain, cellulitis has not worsened, he was not happy for his overnight nursing care but in am nurse and charge nurse did address his issues and at the time of my eval he did not complaint of any active issues Vitals/I&O/Wt Last Vital Signs Temp 97.8 F 08/21/21 16:00 Pulse 74 08/21/21 16:00 Resp 16 08/21/21 16:00 BP 115/60 08/21/21 16:00 Pulse Ox 93 08/21/21 16:00 08/21/21 08/21/21 08/21/21 06:59 14:59 22:59 Intake Total 410 / 960 650 / 650 300 / 950 Output Total 450 / 700 Balance -40 / 260 650 / 650 300 / 950 Weight last 48 hrs Weight 77.111 kg Physical Exam Narrative: EXAM NARRATIVE: Patient was seen and examined this morning Patient was sitting at the bedside Nonpurulent cellulitis of left foot with induration, dorsalis pedis posterior tibial pulses 1+ Onychomycosis No active open wound No signs of gangrene Trace edema bilateral lower legs noted S1, S2 No audible stridor or wheezing EOMI, PERRLA No neurological deficit Data : 08/20/21 11:35 08/20/21 11:35 Micro: Microbiology 08/20/21 16:25 MRSA Culture - Final Nose 08/20/21 21:32 Blood Culture - Preliminary Blood SPECIMEN COLLECTED 08/20/21 21:27 Blood Culture - Preliminary Blood SPECIMEN COLLECTED 08/20/21 11:10 Bacterial Antigens - Final Urine,Clean Catch 08/20/21 11:10 Legionella Urinary Antigen - Final Urine,Clean Catch A&P Assessment and plan (1) Superficial thrombosis of left lower extremity: Status: Acute (2) Cellulitis of left anterior lower leg: Status: Acute (3) Essential hypertension: Status: Acute (4) Atrial fibrillation: Status: Acute (5) Hard of hearing: Status: Acute Qualifiers: Hearing loss type: unspecified Laterality: bilateral Qualified Code(s): H91.93 - Unspecified hearing loss, bilateral Additional A&P Information Nonpurulent cellulitis of left foot ruled out DVT, superficial venous thrombosis noted De-escalate antibiotics Requested Doppler to rule out arterial ischemia we will check SILVIA Superficial thrombosis of left leg already on Pradaxa COPD without acute exacerbation currently doing well on room air A. fib without RVR Hypothyroidism without acute decompensation continue levothyroxine Cardiac diet DVT prophylaxis: Pradaxa Anticipating discharge tomorrow after PT evaluation Patient is stating that he uses a walker at home, lives alone has 2 dogs Attestations Medical Necessity Statement*: Anticipating discharge tomorrow Time Spent in Patient Care: less than 15 minutes Coding Level of Care Code Acute Refined Syrup Operator for g Fwd Diagnoses Superficial thrombosis of left lower extremity I82.812 Cellulitis of left anterior lower leg L03.116 Essential hypertension I10 Atrial fibrillation I48.91 Hard of hearing H91.93 Hearing loss type: unspecified Laterality: bilateral
[2021-08-21] MEDS: doxycycline 100 mg Tablet PO (18:26)
[2021-08-22] VITALS (8 sets, daily range): BP systolic 120–130; BP diastolic 67–74; PULSE 64–96; RESP 16–20; TEMP 36.4–36.6; O2SAT 90–96
[2021-08-22] MEDS: ipratropium-albuterol 3 mL Neb INHALATION ×2 (04:59→08:36)
[2021-08-22] MEDS: HYDROcodone-acetaminophen 5-325 mg Tablet 1 TAB PO ×2 (05:35→11:15)
[2021-08-22 05:55] LABS: Basophils % 0.2 %; Eosinophils # 0.2 10^3/uL (0.0-0.8); Eosinophils % 1.6 %; Hematocrit 42.6 % (42.0-52.0); Hemoglobin 13.4 g/dL (11.7-16.6); Lymphocytes # 1.7 10^3/uL (0.8-4.8); Lymphocytes % 16.9 %; Mean Corpuscular HGB Conc 31.5 g/dL (30.0-36.0); Mean Corpuscular Volume 89.1 fl (80-94); Mean Platelet Volume 9.2 fL (7.4-10.4); Monocytes # 0.8 10^3/uL (0.2-0.9); Monocytes % 8.3 %; Neutrophils # 7.01 10^3/uL (1.8-7.7); Neutrophils % 72.1 %; Nucleated Red Blood Cells % 0 %; Platelet Count 181 10^3/cmm (130-400); Red Blood Count 4.78 10^6/uL (4.1-5.3); Red Cell Distribution Width 15.7 % (12.1-15.1); White Blood Count 9.7 10^3/uL (4.0-10.0)
[2021-08-22 06:31] LABS: Procalcitonin 0.14 ng/mL (0-0.5)
[2021-08-22 06:43] LABS: Anion Gap 13.2 (5-19); Blood Urea Nitrogen 15 mg/dL (8-23); C Reactive Protein 103.2 mg/L (0.0-4.9); Calcium 8.5 mg/dL (8.5-10.5); Carbon Dioxide 26 mmol/L (22-29); Chloride 102 mmol/L (98-107); Creatinine Clr Calc Pharmacy 75.2543; Glucose 75 mg/dL (65-115); Osmolality Calculated 284 mOsm/kg (285-295); Potassium 4.2 mmol/L (3.5-5.1); Sodium 137 mmol/L (136-145)
[2021-08-22] MEDS: cholecalciferol (vitamin D3) 1,000 unit Tablet 1000 UNIT PO (08:13)
[2021-08-22] MEDS: levothyroxine 125 mcg Tablet PO (08:13)
[2021-08-22] MEDS: doxycycline 100 mg Tablet PO (08:13)
[2021-08-22] MEDS: amlodipine 5 mg Tablet PO (08:13)
[2021-08-22] MEDS: dilTIAZem ER (24HR) 240 mg Capsule PO (08:13)
[2021-08-22] MEDS: prednisoLONE 1% Op Susp 5 mL Btl 1 DROP EYE-BOTH (08:14)
[2021-08-22] MEDS: FUROsemide 20 mg Tablet PO (08:14)
[2021-08-22] MEDS: budesonide 0.5 mg/2 mL Neb INHALATION (08:37)
--- NOTE | 2021-08-22 10:33 | PC.CHAP ---
Pastoral Care Encounter/Spiritual Assessment Type of Contact [] Declined manager web application visit [] Patient/Family/Request visit [] Outpatient visit [] Follow-up visit [] Physician referral [] Code/Alert [x] Routine visit [] Staff referral [] Actively dying [] Patient sleeping [] Family support [] [] Out of room [] Palliative care [] [] Receiving care in room [] Pre-surgical visit [] Trauma [] Long length of stay [] ICU visit [x] Other: Relational/Emotional Strength [] Patient feels connected with others/family/visitors/staff [] Distress [] Loneliness/isolation [] Abandonment Spirituality of Patient [] Person of Nohelia [] Attends Orthodox of their Nohelia [] Believes in Prayer [] Reads Bible or Yarsani materials [] There are Spiritual issues to be addressed First Line Production Supervisor Interventions [] Prayer [] Active listening [] Non-anxious presence [] Spiritual/emotional support [] Crisis/trauma care [] Spiritual counseling [] Bereavement support [] Provided bereavement packet [] Provided Bible/devotional materials [] Provided toy/stuffed animal, coloring book to patient or family member [] Provided Communion [] Anointing/Calvin [] Salvation [] Completed spiritual assessment [] Other: Impact on Illness or Injury [] Angry [] Fearful [] Anxious [] Often cries [] Exhaustion [] Unable to work [] Unable to attend baptist [] Unable to walk/stand [] Unable to read [] Unable to drive [] Unable to eat/drink [] Unable to sleep [] Unable to be with family [] Patient intubated [] Other: Summary While manager web application visited with room mate, Pt was up getting dressed, going to bathroom etc. so manager web application did not attempt additional contact in regards to a visit. Time spent with patient
--- NOTE | 2021-08-22 11:03 | PM.DCS ---
Discharge Providers Date of Admission: 08/20/21 15:25 Date of Discharge: August 22, 2021 Attending Provider at Admission: Quyen Dahl MD Attending Provider at Discharge: Linda Vick MD Primary Care Provider: Cooper Martin DO Diagnoses at Discharge Discharge Diagnosis (1) Superficial thrombosis of left lower extremity: Status: Acute (2) Cellulitis of left anterior lower leg: Status: Acute (3) Essential hypertension: Status: Acute (4) Atrial fibrillation: Status: Acute (5) Hard of hearing: Status: Acute Qualifiers: Hearing loss type: unspecified Laterality: bilateral Qualified Code(s): H91.93 - Unspecified hearing loss, bilateral Reason for Visit Reason for Visit: LEG SWELLING Hospital Course Hospital Course 86-year-old male who was admitted for management of leg pain and cellulitis of left foot. CT scan of foot did not show any signs of osteomyelitis or localized collection of abscess, no signs of necrotizing fasciitis, patient remained afebrile, osteomyelitis ruled out, patient did well with IV antibiotics. Venous Doppler ruled out DVT, he was diagnosed with superficial thrombophlebitis of left leg, he is already on Pradaxa for his history of atrial fibrillation. Blood cultures remain sterile, I did request arterial duplex however report is pending. Patient did not show any signs of arterial ischemic ulcers. He does have onychomycosis which most likely is a source of infection. Did recommend physical therapy, recommended rolling walker, cane for ambulation. He lives alone at home. Onychomycosis regimen prescribed. He will get p.o. antibiotics at the time of discharge Physical Exam Narrative: EXAM NARRATIVE: Patient was in good mood S1, S2 variable Trace edema of lower extremities Left foot cellulitis with improvement in the borders hyperemia has been getting better color has improved no signs of ischemic ulcers cyanosis or gangrene, onychomycosis Venous stasis dermatitis, no skin/wound opening, no signs of purulent drainage No audible stridor or wheezing Hearing impairment No focal deficit Discharge Data Data Completed and Pending: Completed Studies During Hospitalization Category Date Time Status CT lower leg LT w o con* [id number] Stat Cat Scan 08/20/21 15:56 Completed XR chest 1V yamilex ble [id number] Stat Exams 08/20/21 13:25 [place] [id number] Urgent Ultrasound 08/20/21 11:10 Completed Pending at discharge Category Date Time Status Blood Culture Sta t Lab 08/20/21 21:32 Results Sputum Culture an d Gram Stain Stat Lab 08/20/21 16:17 Uncollected Vancomycin Trough Timed Lab 08/22/21 13:30 [place] [id number] Rout ine Ultrasound 08/21/21 11:33 Taken Labs from last 24 hours 08/22/21 08/22/21 08/21/21 05:18 05:18 13:16 WBC 9.7 RBC 4.78 Hgb 13.4 Hct 42.6 MCV 89.1 MCH 28.0 MCHC 31.5 RDW 15.7 H Plt Count 181 MPV 9.2 Neut % (Auto) 72.1 Lymph % (Auto) 16.9 [place] % (Auto) 8.3 Eos % (Auto) 1.6 Baso % (Auto) 0.2 Neut # (Auto) 7.01 Lymph # (Auto) 1.7 [place] # (Auto) 0.8 Eos # (Auto) 0.2 Baso # (Auto) 0.0 Nucleated RBC % (a uto) 0 Nucleated RBCs # 0.0 Sodium 137 Potassium 4.2 Chloride 102 Carbon Dioxide 26 Anion Gap 13.2 BUN 15 Creatinine 0.7 GFR Calculation Not Reportable Glucose 75 Calculated Osmolal ity 284 L Calcium 8.5 C-Reactive Protein 103.2 H Procalcitonin 0.14 Vancomycin Trough 6.6 L Vitals: Last Vital Signs Temp 97.8 F 08/22/21 07:48 Pulse 64 08/22/21 08:39 Resp 18 08/22/21 08:39 BP 130/74 08/22/21 07:48 Pulse Ox 91 08/22/21 08:39 Discharge Plan Discharge Patient Disposition: Home Condition: Stable Prescriptions: New doxycycline hyclate 100 mg tablet,delayed release (DR/EC) 100 mg PO BID Qty: 14 RF: 0 Augmentin 875-125 mg tablet 1 tab PO BID Qty: 14 RF: 0 oxycodone 5 mg tablet 5 mg PO Q12H Qty: 10 RF: 0 Senna Lax 8.6 mg tablet 8.6 mg PO DAILY Qty: 10 RF: 0 terbinafine HCl 250 mg tablet 250 mg PO DAILY 28 Days Qty: 30 RF: 0 Continued cholecalciferol (vitamin D3) 25 mcg (1,000 unit) capsule 25 mcg PO DAILY RF: 0 diltiazem HCl 240 mg capsule,extended release 24hr 240 mg PO DAILY RF: 0 levothyroxine 125 mcg capsule 125 mcg PO DAILY RF: 0 meloxicam 7.5 mg tablet 7.5 mg PO DAILY RF: 0 metronidazole 0.75 % cream 1 applic topical DAILY RF: 0 prednisolone acetate 1 % drops,suspension 1 drp ophthalmic (eye) BID RF: 0 ipratropium-albuterol 0.5 mg-3 mg(2.5 mg base)/3 mL solution for nebulization 3 ml inhalation QID PRN (Reason: shortness of breath) Qty: 90 RF: 3 Combivent Respimat 20-100 mcg/actuation mist 1 puff inhalation Q6H PRN (Reason: shortness of breath or wheezing) Qty: 4 RF: 3 Spiriva Respimat 2.5 mcg/actuation mist 2 puff inhalation DAILY Qty: 4 RF: 3 amlodipine 5 mg tablet 5 mg PO DAILY Qty: 90 RF: 0 Pradaxa 150 mg capsule 150 mg PO BID Qty: 180 RF: 0 furosemide 20 mg tablet 20 mg PO DAILY 30 Days Qty: 90 RF: 2 Discontinued amoxicillin 500 mg capsule 500 mg PO BID 7 Days Qty: 14 RF: 0 doxycycline monohydrate 100 mg capsule 100 mg PO Q12H 7 Days Qty: 14 RF: 0 Discharge Orders: Discharge Order (Routine); Ordered 08/22/21 Ordered By: Linda Vick Referrals: [facility] [place] [Occupational Therapist] - 08/29/21 8:30 am Discharge Diet: Cardiac Discharge Activity: Use walker/crutches as instructed and As per PT/OT instructions Patient Instructions: Doxycycline (By mouth), Amoxicillin/Clavulanate Potassium (By mouth), Laxative, Stool Softeners (By mouth), Oxycodone, Slow Release (By mouth), Cellulitis (GEN), Opioid Safety Discharge Attestations Time Spent in Discharge Care*: less than 30 min Quality Metrics Clinical Quality Measures During this hospital stay, did patient experience: None Coding Level of Care Code Acute Chg FW DC note Diagnoses Superficial thrombosis of left lower extremity I82.812 Cellulitis of left anterior lower leg L03.116 Essential hypertension I10 Atrial fibrillation I48.91 Hard of hearing H91.93 Hearing loss type: unspecified Laterality: bilateral
[2021-08-22] MEDS: lidocaine 2% viscous 15 ML, aluminum-mag hydrox-simethicon 30 ML, sucralfate oral liq 1 GM PO (11:16)
--- NOTE | 2021-08-22 12:29 | PC.NURSE ---
PT HAS DONE WELL FOR ME TODAY. PT HAS HAD SOME COMPLAINTS OF PAIN BUT HAS BEEN CONTROLLED WITH ORDERED PAIN MEDICATION. PT WILL DISCHARGE TODAY PER MD. PT IS HAPPY WITH THIS AND IS READY TO GO HOME. DISCHARGE PAPERWORK WAS GONE OVER WITH PT. MEDICATION WAS SENT TO [facility] EXCEPT FOR ONE PRESCRIPTION, IT WAS SENT TO [facility] [place] PER PT REQUEST. ALL QUESTIONS ANSWERED. IV REMOVED. CATHETER TIP INTACT. PT TOLERATED WEEL. PTS BELONGINGS WERE GATHERED. PT SAFELY WHEELED OUT BY THIS NURSE AT 1227.
--- NOTE | 2021-08-23 11:57 | PC.SOCIAL ---
discharge follow up call made, spoke with patients daughterKaren. She reports patient still isn't feeling great, he is resting and trying to take it easy. she is unsure about medications. nurse went over all new medications with daughter and she is going to make sure patient gets those and begins taking. made daughter aware that medications should be a mail order from [place]. patient and daughter are both aware of follow up appointment date and time with pcp. no questions or concerns voiced from daughter.
== END 2021-08-22 12:27 | disposition home or self-care (01) | DRG 603 ==
LOC: ER 17:25 → MEDSURG 17:32
PROVIDERS: Physician Assistant; Admitting Provider Internal Medicine; Emergency Provider Emergency Medicine; PCP Emergency Medicine Emergency Medical Services; Visit Provider Internal Medicine
DX: L03.116 Cellulitis of left lower limb (principal); I80.02 Phlebitis and thrombophlebitis of superficial vessels of left lower extremity; J44.9 Chronic obstructive pulmonary disease, unspecified; I48.91 Unspecified atrial fibrillation; I11.0 Hypertensive heart disease with heart failure; I50.9 Heart failure, unspecified; E03.9 Hypothyroidism, unspecified; Z87.891 Personal history of nicotine dependence; H91.93 Unspecified hearing loss, bilateral; Z79.01 Long term (current) use of anticoagulants
CPT/HCPCS: 36415; 36600; 71045; 73700; 80048; 80051; 80053; 80202; 81003; 82330; 82805; 83605; 84145; 85025; 86140; 86403; 87040; 87426; 87449; 87641; 93926; 93971; 94640; 96365; 96366; 96367; 97161; 99285; J0696; J2543; J3370; J7040; J7050; J7611; J7626

== ENCOUNTER 2021-08-25 02:45 | Emergency (ER) | payer OTHER, SELFPAY ==
--- NOTE | 2021-08-25 02:51 | XRR_ITS ---
PROCEDURE INFORMATION: Exam: XR Chest Exam date and time: 08/25/2021 2:51 AM Age: 86 years old Clinical indication: Chest pressure; Patient HX: Chest pain. History of afib and copd. ; Additional info: Cp TECHNIQUE: Imaging protocol: XR of the chest. Views: 1 view. COMPARISON: CR (CHEST, ) 08/20/2021 2:14 PM FINDINGS: Lungs: Calcified pulmonary nodule/nodules, consistent with prior granulomatous disease. Pleural spaces: Unremarkable. No pleural effusion. No pneumothorax. Heart/Mediastinum: Unremarkable. No cardiomegaly. Bones/joints: Unremarkable. XR/XR chest 1V portable [id number] IMPRESSION: No acute disease. Radiation Dose CTDIVOL = (mGy): DLP = (mGy-cm)
--- NOTE | 2021-08-25 02:51 | ECG_ITS ---
[facility] Test Date: 2021-08-25 Pat Name: Hao Mckeon Department: Room: Gender: Male Pack Master: : 1935 Requested By: Minal Ramirez Order Number: [id number] [place] MD: Abida Bass M.D. Measurements Intervals [place] Rate: 75 P: MD: QRS: -15 QRSD: 94 T: 62 QT: 400 QTc: 448 Interpretive Statements ATRIAL FIBRILLATION SEPTAL MYOCARDIAL INFARCTION , PROBABLY OLD [40+ ms Q WAVE IN V1/V2] No previous ECG available for comparison Electronically Signed On 08-25-2021 9:34:43 CDT by Abida Bass M.D. [email or web address] river county [email or web address] medical center – [id number]
[2021-08-25 02:52] VITALS: BP 125/71; PULSE 82; RESP 18; TEMP 36.1; O2SAT 93; BMI 25.0
--- NOTE | 2021-08-25 03:00 | W.ED.CHESTPA ---
HPI - Chest Pain General: Chief Complaint: Chest Pain Stated Complaint: cp, bilateral leg pain Time Seen by Provider: 08/25/21 02:50 Source: patient Mode of arrival: ambulatory Limitations: no limitations History of Present Illness: HPI narrative: 86-year-old male states that he started having chest pain 3 hours ago that has since resolved before arrival. States he is completely pain-free down feels back to his baseline but is concerned with the pain he was having. Patient was recently admitted here for cellulitis of his left leg. 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 Stanton. Cellulitis is improving and he is on antibiotics. Denies any shortness of breath. Denies any worsening improving factors to his pain. MD complaint: chest pain Associated symptoms: Deny abdominal pain, dyspnea, fever(s), nausea or vomiting Review of Systems Const: Denies: fever(s), chills, body aches or change in appetite Eyes: Denies: blurry vision or eye discomfort ENMT: Denies: throat pain or dental pain Card: Reports: chest pain Resp: Denies: dyspnea GI: Denies: abdominal pain, nausea, vomiting or diarrhea : Denies: dysuria Musc: Denies: neck pain or back pain Skin/Breast: Denies: rash Neuro: Denies: headache(s) Psych: Denies: depression Walt/Lymph: Denies: easy bruising All/Imm: Denies: urticaria PFSH ED PFSH: Medical History Atrial fibrillation Chronic obstructive pulmonary disease Essential hypertension Hard of hearing Hypothyroidism Family History Father , heart attack Myocardial infarct Mother Myocardial infarct Social History Smoking and tobacco status: former smoker Quit status (tobacco): has quit using tobacco Year quit tobacco: 1975 [id number] Second hand smoke exposure: Yes Smoking risk assessment/counseling performed?: Yes Alcohol intake: never Lives independently: Yes Household members: none Marital status: / service: Yes Current occupational status: retired Pets and animals: Yes History of recent travel: No Current gender identity: Male Physical Exam Const: COMMON NORMALS: no acute distress, patient oriented x3 and healthy appearing HENMT: COMMON NORMALS: normocephalic and atraumatic HEAD & SCALP: normocephalic and atraumatic Eye: COMMON NORMALS: Equal, round and reactive pupils present and EOMs intact bilaterally PUPIL: Yes Equal, round and reactive pupils present Neck/C-Spine: COMMON NORMALS: full ROM and supple Chest: COMMONS NORMALS: normal inspection of the chest and normal palpation of entire chest wall Resp: COMMON NORMALS: normal respiratory effort, No retractions, No use of accessory muscles and clear to auscultation bilaterally AUSCULTATION: clear to auscultation bilaterally Cardio: COMMON NORMALS: regular rate, regular rhythm and No murmurs present (Cardio) RATE: regular rate RHYTHM: regular rhythm GI: COMMON NORMALS: Normal to inspection, nondistended, normoactive bowel sounds present, Soft to palpation, non-tender and no masses PALPATION: Yes Soft to palpation Extremity: COMMON NORMALS: full ROM NARRATIVE EXTREMITY EXAM: Swelling to left leg along with erythema that is improved from when he was discharged from the hospital distal pulses intact Neuro: COMMON NORMALS: patient oriented x3, moves all extremities and no focal motor deficits Psych: COMMON NORMALS: mental status grossly normal, Normal thought process present and cooperative THOUGHT PROCESS: Normal thought process present Skin: COMMON NORMALS: no rashes or lesions noted and no wounds GENERAL SKIN EXAM: no rashes or lesions noted Course Vital Signs: Vital signs: Vital Signs Temperature 96.9 F L 08/25/21 06:07 Pulse Rate 74 08/25/21 06:07 Respiratory Rate 20 H 08/25/21 06:07 Blood Pressure 115/67 08/25/21 06:07 Pulse Oximetry 93 08/25/21 06:07 MDM - Chest Pain MDM Narrative: Medical decision making narrative: Patient presents here with chest pains atypical in nature initial and repeat troponin here negative he has been pain-free his legs improving he has good distal pulses. He is to follow-up with cardiology as scheduled and return if worsening. Lab Data: Labs: Lab Results 08/25/21 08/25/21 08/25/21 03:10 03:10 03:10 WBC 8.8 10^3/uL 10^3/ uL (4.0-10.0) RBC 4.93 10^6/uL 10^6 /uL (4.1-5.3) Hgb 13.7 g/dL g/dL (11.7-16.6) Hct 44.3 % % (42.0-52.0) MCV 89.9 fl fl (80-94) MCH 27.8 pg L pg (28.0-34.0) MCHC 30.9 g/dL g/dL (30.0-36.0) RDW 15.5 % H % (12.1-15.1) Plt Count 220 10^3/cmm 10^3 /cmm (130-400) MPV 9.3 fL fL (7.4-10.4) Neut % (Auto) 67.7 % % Lymph % (Auto) 19.4 % % Cow[place] % (Auto) 9.0 % % Eos % (Auto) 2.7 % % Baso % (Auto) 0.6 % % Neut # (Auto) 5.96 10^3/uL 10^3 /uL (1.8-7.7) Lymph # (Auto) 1.7 10^3/uL 10^3/ uL (0.8-4.8) Cowley # (Auto) 0.8 10^3/uL 10^3/ uL (0.2-0.9) Eos # (Auto) 0.2 10^3/uL 10^3/ uL (0.0-0.8) Baso # (Auto) 0.1 10^3/uL 10^3/ uL (0.0-0.1) Nucleated RBC % (a uto) 0 % % Nucleated RBCs # 0.0 /100WBC /100W BC PT INR Sodium 139 mmol/L mmol/L (136-145) Potassium 4.4 mmol/L mmol/L (3.5-5.1) Chloride 104 mmol/L mmol/L (98-107) Carbon Dioxide 26 mmol/L mmol/L (22-29) Anion Gap 13.4 (5-19) BUN 21 mg/dL mg/dL (8-23) Creatinine 1.0 mg/dL mg/dL (0.7-1.2) GFR Calculation Not Reportable Glucose 89 mg/dL mg/dL (65-115) Calculated Osmolal ity 290 mOsm/kg mOsm/ kg (285-295) Calcium 9.0 mg/dL mg/dL (8.5-10.5) Total Bilirubin 0.6 mg/dL mg/dL (0.15-1.2) AST 16 U/L U/L (0-40) ALT 16 U/L U/L (0-41) Alkaline Phosphata se 56 IU/L IU/L (40-130) Troponin T Baselin e 63 ng/L H ng/L (0-15) Troponin T 120 Min [place] Troponin T Total Protein 6.3 g/dL L g/dL (6.6-8.7) Albumin 3.5 g/dL g/dL (3.5-5.2) Globulin 2.8 g/dL g/dL (1.3-4.6) 08/25/21 08/25/21 03:10 05:15 WBC RBC Hgb Hct MCV MCH MCHC RDW Plt Count MPV Neut % (Auto) Lymph % (Auto) Cowley % (Auto) Eos % (Auto) Baso % (Auto) Neut # (Auto) Lymph # (Auto) Cow[place] # (Auto) Eos # (Auto) Baso # (Auto) Nucleated RBC % (a uto) Nucleated RBCs # PT 13.90 SECONDS SEC ONDS (12.1-14.9) INR 1.04 (0.8-1.2) Sodium Potassium Chloride Carbon Dioxide Anion Gap BUN Creatinine GFR Calculation Glucose Calculated Osmolal ity Calcium Total Bilirubin AST ALT Alkaline Phosphata se Troponin T Baselin e Troponin T 120 Min [place] 51.86 ng/L H ng/L (0-15) Delta Troponin T -11.14 ABS# L ABS # (0-10) Total Protein Albumin Globulin Imaging Data^: CXR: Attestation: I personally reviewed and interpreted this imaging study as follows: My impression: no acute abnormality EKG Data^: EKG 1: Attestation: I personally reviewed and interpreted this EKG as follows: EKG interpretation date: 08/25/21 EKG interpretation time: 03:02 Interpretation: afib hr [address] or t wave abnormalities qrs 94 qtc 429 EKG 2: Attestation: I personally reviewed and interpreted this EKG as follows: EKG interpretation date: 08/25/21 EKG interpretation time: 05:11 Interpretation: afib hr [address] or t wave abnormalities qrs 96 qtc 432 Discharge Plan Discharge Patient Disposition: Home Clinical Impression: Chest pain Qualifiers: Chest pain type: unspecified Qualified Code(s): R07.9 - Chest pain, unspecified Condition: Stable Prescriptions: No Action cholecalciferol (vitamin D3) 25 mcg (1,000 unit) capsule 25 mcg PO DAILY RF: 0 diltiazem HCl 240 mg capsule,extended release 24hr 240 mg PO DAILY RF: 0 levothyroxine 125 mcg capsule 125 mcg PO DAILY RF: 0 meloxicam 7.5 mg tablet 7.5 mg PO DAILY RF: 0 metronidazole 0.75 % cream 1 applic topical DAILY RF: 0 prednisolone acetate 1 % drops,suspension 1 drp ophthalmic (eye) BID RF: 0 ipratropium-albuterol 0.5 mg-3 mg(2.5 mg base)/3 mL solution for nebulization 3 ml inhalation QID PRN (Reason: shortness of breath) Qty: 90 RF: 3 Combivent Respimat 20-100 mcg/actuation mist 1 puff inhalation Q6H PRN (Reason: shortness of breath or wheezing) Qty: 4 RF: 3 Spiriva Respimat 2.5 mcg/actuation mist 2 puff inhalation DAILY Qty: 4 RF: 3 amlodipine 5 mg tablet 5 mg PO DAILY Qty: 90 RF: 0 Pradaxa 150 mg capsule 150 mg PO BID Qty: 180 RF: 0 doxycycline hyclate 100 mg tablet,delayed release (DR/EC) 100 mg PO BID Qty: 14 RF: 0 Augmentin 875-125 mg tablet 1 tab PO BID Qty: 14 RF: 0 oxycodone 5 mg tablet 5 mg PO Q12H Qty: 10 RF: 0 Senna Lax 8.6 mg tablet 8.6 mg PO DAILY Qty: 10 RF: 0 terbinafine HCl 250 mg tablet 250 mg PO DAILY 28 Days Qty: 30 RF: 0 Aspirin Low Dose 81 mg tablet,delayed release (DR/EC) 81 mg PO DAILY Qty: 30 RF: 3 Plavix 75 mg tablet 75 mg PO DAILY Qty: 30 RF: 3 furosemide 20 mg tablet 40 mg PO DAILY 30 Days Qty: 90 RF: 2 Discharge Orders: Discharge ED (Routine); Ordered 08/25/21 Ordered By: Korby James Referrals: Cooper Martin DO [Primary Care Provider] - Discharge Diet: Advance as tolerated Discharge Activity: Resume usual activity Patient Instructions: Chest Pain (ED) Coding Level of Care Code ED Power Cleaner Operator for Chg Fwd Exam Comprehensive
[2021-08-25 03:18] LABS: Basophils # 0.1 10^3/uL (0.0-0.1); Basophils % 0.6 %; Eosinophils # 0.2 10^3/uL (0.0-0.8); Eosinophils % 2.7 %; Hematocrit 44.3 % (42.0-52.0); Hemoglobin 13.7 g/dL (11.7-16.6); Lymphocytes # 1.7 10^3/uL (0.8-4.8); Lymphocytes % 19.4 %; Mean Corpuscular HGB Conc 30.9 g/dL (30.0-36.0); Mean Corpuscular Hemoglobin 27.8 pg (28.0-34.0); Mean Corpuscular Volume 89.9 fl (80-94); Mean Platelet Volume 9.3 fL (7.4-10.4); Monocytes # 0.8 10^3/uL (0.2-0.9); Neutrophils # 5.96 10^3/uL (1.8-7.7); Neutrophils % 67.7 %; Nucleated Red Blood Cells % 0 %; Platelet Count 220 10^3/cmm (130-400); Red Blood Count 4.93 10^6/uL (4.1-5.3); Red Cell Distribution Width 15.5 % (12.1-15.1); White Blood Count 8.8 10^3/uL (4.0-10.0)
[2021-08-25 03:31] LABS: INR 1.04 (0.8-1.2)
[2021-08-25 03:40] LABS: Troponin(5th) Baseline 63 ng/L (0-15)
[2021-08-25 03:43] LABS: Alanine Aminotransferase 16 U/L (0-41); Albumin Level 3.5 g/dL (3.5-5.2); Alkaline Phosphatase 56 IU/L (40-130); Anion Gap 13.4 (5-19); Aspartate Amino Transferase 16 U/L (0-40); Blood Urea Nitrogen 21 mg/dL (8-23); Carbon Dioxide 26 mmol/L (22-29); Chloride 104 mmol/L (98-107); Creatinine Clr Calc Pharmacy 62.3202; Globulin 2.8 g/dL (1.3-4.6); Glucose 89 mg/dL (65-115); Osmolality Calculated 290 mOsm/kg (285-295); Potassium 4.4 mmol/L (3.5-5.1); Sodium 139 mmol/L (136-145); Total Bilirubin 0.6 mg/dL (0.15-1.2); Total Protein 6.3 g/dL (6.6-8.7)
[2021-08-25 04:16] VITALS: BP 114/59; PULSE 73; RESP 18; O2SAT 96
--- NOTE | 2021-08-25 04:51 | ECG_ITS ---
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 Measurements Intervals [place] Rate: 68 P: SC: QRS: 25 QRSD: 96 T: 73 QT: 415 QTc: 442 Interpretive Statements ATRIAL FIBRILLATION WITH ABERRANT CONDUCTION OR VENTRICULAR PREMATURE COMPLEXES POSSIBLE ANTERIOR MYOCARDIAL INFARCTION , PROBABLY OLD [30 ms Q WAVE IN V3/V4, OR R < 0.2 mV IN V4] ABNORMAL RHYTHM ECG No previous ECG available for comparison Electronically Signed On 08-25-2021 9:40:43 CDT by Abida Bass M.D. [id number]
[2021-08-25 05:00] VITALS: PULSE 65; RESP 22; O2SAT 94
[2021-08-25] MEDS: ipratropium-albuterol 3 mL Neb INHALATION (05:00)
[2021-08-25 05:05] VITALS: PULSE 73; RESP 22; O2SAT 94
[2021-08-25 05:29] VITALS: BP 115/67; PULSE 74; RESP 20; O2SAT 93
[2021-08-25 05:51] LABS: Troponin 5 2HR 51.86 ng/L (0-15); Troponin 5 2HR Delta -11.14 ABS# (0-10)
[2021-08-25 06:07] VITALS: BP 115/67; PULSE 74; RESP 20; TEMP 36.1; O2SAT 93
== END 2021-08-25 06:11 | disposition home or self-care (01) ==
PROVIDERS: Emergency Provider Emergency Medicine; PCP Emergency Medicine Emergency Medical Services
DX: R07.9 Chest pain, unspecified (principal); Z79.82 Long term (current) use of aspirin; Z79.02 Long term (current) use of antithrombotics/antiplatelets; J44.9 Chronic obstructive pulmonary disease, unspecified; I48.91 Unspecified atrial fibrillation; I10 Essential (primary) hypertension; Z87.891 Personal history of nicotine dependence
CPT/HCPCS: 71045; 80053; 84484; 85025; 85610; 93005; 94640; 99284

== ENCOUNTER 2021-08-26 07:24 | Emergency (ER) | payer OTHER, MEDICARE, SELFPAY ==
[2021-08-26 07:50] VITALS: BP 152/91; PULSE 99; RESP 20; O2SAT 94; BMI 23.0
[2021-08-26 08:20] LABS: Basophils % 0.5 %; Eosinophils # 0.2 10^3/uL (0.0-0.8); Eosinophils % 2.7 %; Hematocrit 41.1 % (42.0-52.0); Lymphocytes # 1.6 10^3/uL (0.8-4.8); Lymphocytes % 20.1 %; Mean Corpuscular HGB Conc 31.6 g/dL (30.0-36.0); Mean Corpuscular Hemoglobin 28.4 pg (28.0-34.0); Mean Corpuscular Volume 89.9 fl (80-94); Mean Platelet Volume 9.1 fL (7.4-10.4); Monocytes # 0.6 10^3/uL (0.2-0.9); Monocytes % 7.7 %; Neutrophils # 5.41 10^3/uL (1.8-7.7); Neutrophils % 68.6 %; Nucleated Red Blood Cells % 0 %; Platelet Count 202 10^3/cmm (130-400); Red Blood Count 4.57 10^6/uL (4.1-5.3); Red Cell Distribution Width 15.3 % (12.1-15.1); White Blood Count 7.9 10^3/uL (4.0-10.0)
--- NOTE | 2021-08-26 08:35 | W.ED.EXTPRO ---
HPI - Extremity Problem General: Chief complaint: Extremity Problem,Nontraumatic Stated complaint: BLE SWELLING - 4TH VISIT FOR SAME Time Seen by Provider: 08/26/21 07:34 History of Present Illness: HPI Narrative: 86-year-old male presents emergency room with complaint of leg swelling. He was discharged 3 days ago on doxycycline and Augmentin need to be admitted for lower extremity edema and cellulitis. He has had venous duplexes which were negative. They attempted to do an SILVIA but unable to do so due to discomfort on the part of the patient. He still has moderate amount of swelling he is on Lasix 20 a day. He denies any fever sweats or chills. He did have a superficial thrombophlebitis in the left leg according to the previous hospitalization note. MD Complaint: extremity pain and extremity swelling Onset (ago): week(s) Pain Consistency: constant Location: left and lower extremity Quality: aching Radiation: none Relieving factors: nothing Exacerbating factors: weight bearing, walking and palpation Associated symptoms: Reports myalgias; Deny arthralgias, chest pain, fever(s), rash or short of breath Context: recent illness Review of Systems Const: Denies: fever(s) ENMT: Denies: throat pain, ear or mastoid pain, nasal discharge or nasal congestion Card: Denies: chest pain Resp: Denies: dyspnea, productive cough or non-productive cough GI: Denies: abdominal pain, nausea, vomiting, hematemesis, coffee ground emesis, diarrhea, constipation, bloating, hematochezia or melena : Denies: flank pain, dysuria, urinary frequency or urinary urgency Skin/Breast: Denies: rash PFSH ED PFSH: Medical History Atrial fibrillation Chronic obstructive pulmonary disease Essential hypertension Hard of hearing Hypothyroidism Family History Father , heart attack Myocardial infarct Mother Myocardial infarct Social History Smoking and tobacco status: former smoker Quit status (tobacco): has quit using tobacco Year quit tobacco: 1975 [id number] Second hand smoke exposure: Yes Smoking risk assessment/counseling performed?: Yes Alcohol intake: never Lives independently: Yes Household members: none Marital status: / service: Yes Current occupational status: retired Pets and animals: Yes History of recent travel: No Current gender identity: Male Physical Exam Const: COMMON NORMALS: no acute distress GENERAL APPEARANCE: cooperative and comfortable ORIENTATION/CONSCIOUSNESS: Yes awake, Yes oriented to person, Yes oriented to place and Yes oriented to time HENMT: COMMON NORMALS: normocephalic, atraumatic and hearing grossly normal bilaterally HEAD & SCALP: normocephalic and atraumatic Neck/C-Spine: COMMON NORMALS: no JVD Lymph: LYMPHATIC: no lymphadenopathy noted and no lymphedema noted Resp: COMMON NORMALS: normal respiratory effort, No retractions, No use of accessory muscles and clear to auscultation bilaterally AUSCULTATION: clear to auscultation bilaterally Cardio: COMMON NORMALS: no JVD, regular rate, regular rhythm and No murmurs present (Cardio) RATE: regular rate RHYTHM: regular rhythm GI: COMMON NORMALS: Soft to palpation and No hepatosplenomegaly present AUSCULTATION: Yes normoactive bowel sounds PALPATION: Yes Soft to palpation, No Tenderness to palpation present (GI), No Guarding due to palpation present (GI) and Yes No hepatosplenomegaly present Extremity: COMMON NORMALS: normal to inspection and capillary refill normal GENERAL: Yes edema (Left lower leg to the level of the mid thigh 1-2+) OTHER: Mild erythema on the left lower leg is within the marked limitations from a skin marking pen that was applied when he was in the hospital recently. Neuro: SENSORIUM/ORIENTATION: Yes oriented to person, Yes oriented to place and Yes oriented to time Skin: COMMON NORMALS: no rashes or lesions noted GENERAL SKIN EXAM: no rashes or lesions noted Course Vital Signs: Vital signs: Vital Signs Pulse Rate 99 08/26/21 07:50 Respiratory Rate 20 H 08/26/21 07:50 Blood Pressure 152/91 08/26/21 07:50 Pulse Oximetry 94 08/26/21 07:50 MDM - Extremity (Nontraumatic) MDM Narrative: Medical decision making narrative: CBC and hemoglobin unremarkable. Will recommend that he continue to take the antibiotic and increase his Lasix to 40 daily. He should follow-up next week return if has further problems. Lab Data: Labs: Lab Results 08/26/21 08/26/21 08:05 08:05 WBC 7.9 10^3/uL 10^3/ uL (4.0-10.0) RBC 4.57 10^6/uL 10^6 /uL (4.1-5.3) Hgb 13.0 g/dL g/dL (11.7-16.6) Hct 41.1 % L % (42.0-52.0) MCV 89.9 fl fl (80-94) MCH 28.4 pg pg (28.0-34.0) MCHC 31.6 g/dL g/dL (30.0-36.0) RDW 15.3 % H % (12.1-15.1) Plt Count 202 10^3/cmm 10^3 /cmm (130-400) MPV 9.1 fL fL (7.4-10.4) Neut % (Auto) 68.6 % % Lymph % (Auto) 20.1 % % [place]so[place] % (Auto) 7.7 % % Eos % (Auto) 2.7 % % Baso % (Auto) 0.5 % % Neut # (Auto) 5.41 10^3/uL 10^3 /uL (1.8-7.7) Lymph # (Auto) 1.6 10^3/uL 10^3/ uL (0.8-4.8) [place]so[place] # (Auto) 0.6 10^3/uL 10^3/ uL (0.2-0.9) Eos # (Auto) 0.2 10^3/uL 10^3/ uL (0.0-0.8) Baso # (Auto) 0.0 10^3/uL 10^3/ uL (0.0-0.1) Nucleated RBC % (a uto) 0 % % Nucleated RBCs # 0.0 /100WBC /100W BC Sodium 136 mmol/L mmol/L (136-145) Potassium 4.3 mmol/L mmol/L (3.5-5.1) Chloride 103 mmol/L mmol/L (98-107) Carbon Dioxide 27 mmol/L mmol/L (22-29) Anion Gap 10.3 (5-19) BUN 16 mg/dL mg/dL (8-23) Creatinine 0.8 mg/dL mg/dL (0.7-1.2) GFR Calculation Not Reportable Glucose 85 mg/dL mg/dL (65-115) Calculated Osmolal ity 282 mOsm/kg L mOs m/kg (285-295) Calcium 8.7 mg/dL mg/dL (8.5-10.5) Total Bilirubin 0.5 mg/dL mg/dL (0.15-1.2) AST 18 U/L U/L (0-40) ALT 14 U/L U/L (0-41) Alkaline Phosphata se 55 IU/L IU/L (40-130) Total Protein 5.6 g/dL L g/dL (6.6-8.7) Albumin 3.3 g/dL L g/dL (3.5-5.2) Globulin 2.3 g/dL g/dL (1.3-4.6) Discharge Plan Discharge Patient Disposition: Home Clinical Impression: Cellulitis, Superficial thrombophlebitis, Lower extremity edema Condition: Stable Prescriptions: Changed furosemide 20 mg tablet 40 mg PO DAILY 30 Days Qty: 90 RF: 2 No Action cholecalciferol (vitamin D3) 25 mcg (1,000 unit) capsule 25 mcg PO DAILY RF: 0 diltiazem HCl 240 mg capsule,extended release 24hr 240 mg PO DAILY RF: 0 levothyroxine 125 mcg capsule 125 mcg PO DAILY RF: 0 meloxicam 7.5 mg tablet 7.5 mg PO DAILY RF: 0 metronidazole 0.75 % cream 1 applic topical DAILY RF: 0 prednisolone acetate 1 % drops,suspension 1 drp ophthalmic (eye) BID RF: 0 ipratropium-albuterol 0.5 mg-3 mg(2.5 mg base)/3 mL solution for nebulization 3 ml inhalation QID PRN (Reason: shortness of breath) Qty: 90 RF: 3 Combivent Respimat 20-100 mcg/actuation mist 1 puff inhalation Q6H PRN (Reason: shortness of breath or wheezing) Qty: 4 RF: 3 Spiriva Respimat 2.5 mcg/actuation mist 2 puff inhalation DAILY Qty: 4 RF: 3 amlodipine 5 mg tablet 5 mg PO DAILY Qty: 90 RF: 0 Pradaxa 150 mg capsule 150 mg PO BID Qty: 180 RF: 0 doxycycline hyclate 100 mg tablet,delayed release (DR/EC) 100 mg PO BID Qty: 14 RF: 0 Augmentin 875-125 mg tablet 1 tab PO BID Qty: 14 RF: 0 oxycodone 5 mg tablet 5 mg PO Q12H Qty: 10 RF: 0 Senna Lax 8.6 mg tablet 8.6 mg PO DAILY Qty: 10 RF: 0 terbinafine HCl 250 mg tablet 250 mg PO DAILY 28 Days Qty: 30 RF: 0 Aspirin Low Dose 81 mg tablet,delayed release (DR/EC) 81 mg PO DAILY Qty: 30 RF: 3 Plavix 75 mg tablet 75 mg PO DAILY Qty: 30 RF: 3 Discharge Orders: Discharge ED (Routine); Ordered 08/26/21 Ordered By: Herbert Mckeon Referrals: Cooper Martin, [Primary Care Provider] - Discharge Diet: Usual diet Discharge Activity: Limit activity as instructed Patient Instructions: Opioid Safety Activity Restrictions/Additional Instructions: Complete antibiotic prescription as previously prescribed. Increase Lasix to 40 mg daily follow-up with your primary care doctor next week. Coding Level of Care Code ED Legislative Director for Cas Fwd Exam Comprehensive
[2021-08-26 08:42] LABS: Alanine Aminotransferase 14 U/L (0-41); Albumin Level 3.3 g/dL (3.5-5.2); Alkaline Phosphatase 55 IU/L (40-130); Aspartate Amino Transferase 18 U/L (0-40); Blood Urea Nitrogen 16 mg/dL (8-23); Calcium 8.7 mg/dL (8.5-10.5); Carbon Dioxide 27 mmol/L (22-29); Chloride 103 mmol/L (98-107); Creatinine Clr Calc Pharmacy 75.2543; Globulin 2.3 g/dL (1.3-4.6); Glucose 85 mg/dL (65-115); Osmolality Calculated 282 mOsm/kg (285-295); Sodium 136 mmol/L (136-145); Total Bilirubin 0.5 mg/dL (0.15-1.2); Total Protein 5.6 g/dL (6.6-8.7)
[2021-08-26 08:45] LABS: Anion Gap 10.3 (5-19); Potassium 4.3 mmol/L (3.5-5.1)
== END 2021-08-26 08:41 | disposition home or self-care (01) ==
PROVIDERS: Emergency Provider Family Medicine; PCP Emergency Medicine Emergency Medical Services
DX: R60.0 Localized edema (principal); I80.00 Phlebitis and thrombophlebitis of superficial vessels of unspecified lower extremity; L03.119 Cellulitis of unspecified part of limb; Z79.82 Long term (current) use of aspirin; Z79.02 Long term (current) use of antithrombotics/antiplatelets; J44.9 Chronic obstructive pulmonary disease, unspecified; I10 Essential (primary) hypertension; Z87.891 Personal history of nicotine dependence
CPT/HCPCS: 80053; 85025; 99283

== ENCOUNTER 2021-08-29 09:03 | Emergency (ER) | payer OTHER, MEDICARE, SELFPAY ==
[2021-08-29 09:17] VITALS: BP 132/68; PULSE 82; RESP 24; TEMP 36.9; O2SAT 97; BMI 23.0
--- NOTE | 2021-08-29 09:41 | USCV_ITS ---
Hao Mckeon Age: 86 Gender: M : 1935 Exam Date: 08/29/2021 10:11 Ordering Phys: Herbert Mckeon DO Technologist: [place] [facility] [place]: leg pain left HISTORY: pain PROCEDURES: On the left side, the common femoral, superficial femoral, profunda femoral, popliteal, posterior tibial, greater saphenous veins, and the peroneal trunk were identified and interrogated in the standard fashion. FINDINGS: Normal 2-D Doppler and augmentation and compressibility throughout the left lower extremity venous structures. Additional imaging through the proximal calf veins also reveals no thrombus. Limited evaluation of the greater saphenous vein is patent with no thrombus.. There is subcutaneous left lower extremity edema noted. CONCLUSIONS No DVT left lower extremity. Dr. Feli Gautam DO (Electronically Signed) Final Date: 29 August 2021 10:38 S
--- NOTE | 2021-08-29 09:52 | W.ED.EXTPRO ---
HPI - Extremity Problem General: Chief complaint: Extremity Problem,Nontraumatic Stated complaint: Swelling, sent by Dr Alex Seen by Provider: 08/29/21 09:05 History of Present Illness: HPI Narrative: 86-year-old male who presents to the emergency room with a complaint of swelling in his legs. He has been seen 3 times recently and he has had 3 venous duplexes all of which have been negative he has a superficial thrombophlebitis. His leg edema is actually less than the last time I seen him as is the redness in his legs. He is taking antibiotics as well as Lasix. He is already on Xarelto. And he states he is continue to take that.Patient had venous duplex on August 17 August [address] of the lower extremities on August 20 and another duplex of the lower extremity arteries on 08 21. He is not having any shortness of breath at this time he is not having any chest pain. [facility] ED PFSH: Medical History Atrial fibrillation Chronic obstructive pulmonary disease Essential hypertension Hard of hearing Hypothyroidism Family History Father , heart attack Myocardial infarct Mother Myocardial infarct Social History Smoking and tobacco status: former smoker Quit status (tobacco): has quit using tobacco Year quit tobacco: 1975 [id number] Second hand smoke exposure: Yes Smoking risk assessment/counseling performed?: Yes Alcohol intake: never Lives independently: Yes Household members: none Marital status: / service: Yes Current occupational status: retired Pets and animals: Yes History of recent travel: No Current gender identity: Male Physical Exam Const: COMMON NORMALS: no acute distress GENERAL APPEARANCE: cooperative and comfortable ORIENTATION/CONSCIOUSNESS: Yes awake, Yes oriented to person, Yes oriented to place and Yes oriented to time HENMT: COMMON NORMALS: normocephalic, atraumatic and hearing grossly normal bilaterally HEAD & SCALP: normocephalic and atraumatic Neck/C-Spine: COMMON NORMALS: no JVD Resp: COMMON NORMALS: normal respiratory effort, No retractions, No use of accessory muscles and clear to auscultation bilaterally AUSCULTATION: clear to auscultation bilaterally Cardio: COMMON NORMALS: no JVD, regular rate, regular rhythm and No murmurs present (Cardio) RATE: regular rate RHYTHM: regular rhythm GI: COMMON NORMALS: Soft to palpation and No hepatosplenomegaly present AUSCULTATION: Yes normoactive bowel sounds PALPATION: Yes Soft to palpation, No Tenderness to palpation present (GI), No Guarding due to palpation present (GI) and Yes No hepatosplenomegaly present Extremity: COMMON NORMALS: normal to inspection, capillary refill normal, no clubbing, cyanosis or edema, no calf tenderness and no pedal edema Neuro: SENSORIUM/ORIENTATION: Yes oriented to person, Yes oriented to place and Yes oriented to time Skin: COMMON NORMALS: no rashes or lesions noted GENERAL SKIN EXAM: no rashes or lesions noted Course Vital Signs: Vital signs: Vital Signs Temperature 98.4 F 08/29/21 09:17 Pulse Rate 82 08/29/21 09:17 Respiratory Rate 24 H 08/29/21 09:17 Blood Pressure 132/68 08/29/21 09:17 Pulse Oximetry 97 08/29/21 09:17 MDM - Extremity (Nontraumatic) MDM Narrative: Medical decision making narrative: Labs and imaging reviewed as on the chart. Venous duplex negative. Patient does not have any shortness of breath is not requiring any oxygen. Believe this is all venous stasis edema. Continue the Lasix continue to elevate his legs complete what antibiotics he has left from previous prescription the erythema is actually improved some. Return if he has further problems continue the anticoagulant as well. Lab Data: Labs: Lab Results 08/29/21 08/29/21 10:05 10:05 WBC 7.0 10^3/uL 10^3/ uL (4.0-10.0) RBC 4.40 10^6/uL 10^6 /uL (4.1-5.3) Hgb 12.4 g/dL g/dL (11.7-16.6) Hct 39.2 % L % (42.0-52.0) MCV 89.1 fl fl (80-94) MCH 28.2 pg pg (28.0-34.0) MCHC 31.6 g/dL g/dL (30.0-36.0) RDW 15.4 % H % (12.1-15.1) Plt Count 224 10^3/cmm 10^3 /cmm (130-400) MPV 9.0 fL fL (7.4-10.4) Neut % (Auto) 71.6 % % Lymph % (Auto) 16.5 % % O'Brien % (Auto) 7.3 % % Eos % (Auto) 3.5 % % Baso % (Auto) 0.7 % % Neut # (Auto) 4.97 10^3/uL 10^3 /uL (1.8-7.7) Lymph # (Auto) 1.2 10^3/uL 10^3/ uL (0.8-4.8) O'Brien # (Auto) 0.5 10^3/uL 10^3/ uL (0.2-0.9) Eos # (Auto) 0.2 10^3/uL 10^3/ uL (0.0-0.8) Baso # (Auto) 0.1 10^3/uL 10^3/ uL (0.0-0.1) Nucleated RBC % (a uto) 0 % % Nucleated RBCs # 0.0 /100WBC /100W BC Sodium 142 mmol/L mmol/L (136-145) Potassium 3.7 mmol/L mmol/L (3.5-5.1) Chloride 106 mmol/L mmol/L (98-107) Carbon Dioxide 28 mmol/L mmol/L (22-29) Anion Gap 11.7 (5-19) BUN 12 mg/dL mg/dL (8-23) Creatinine 0.8 mg/dL mg/dL (0.7-1.2) GFR Calculation Not Reportable Glucose 87 mg/dL mg/dL (65-115) Calculated Osmolal ity 293 mOsm/kg mOsm/ kg (285-295) Calcium 8.6 mg/dL mg/dL (8.5-10.5) Discharge Plan Discharge Patient Disposition: Home Clinical Impression: Lower extremity edema, Cellulitis, Superficial thrombophlebitis Condition: Stable Prescriptions: No Action cholecalciferol (vitamin D3) 25 mcg (1,000 unit) capsule 25 mcg PO DAILY RF: 0 diltiazem HCl 240 mg capsule,extended release 24hr 240 mg PO DAILY RF: 0 levothyroxine 125 mcg capsule 125 mcg PO DAILY RF: 0 meloxicam 7.5 mg tablet 7.5 mg PO DAILY RF: 0 metronidazole 0.75 % cream 1 applic topical DAILY RF: 0 prednisolone acetate 1 % drops,suspension 1 drp ophthalmic (eye) BID RF: 0 ipratropium-albuterol 0.5 mg-3 mg(2.5 mg base)/3 mL solution for nebulization 3 ml inhalation QID PRN (Reason: shortness of breath) Qty: 90 RF: 3 Combivent Respimat 20-100 mcg/actuation mist 1 puff inhalation Q6H PRN (Reason: shortness of breath or wheezing) Qty: 4 RF: 3 Spiriva Respimat 2.5 mcg/actuation mist 2 puff inhalation DAILY Qty: 4 RF: 3 amlodipine 5 mg tablet 5 mg PO DAILY Qty: 90 RF: 0 Pradaxa 150 mg capsule 150 mg PO BID Qty: 180 RF: 0 doxycycline hyclate 100 mg tablet,delayed release (DR/EC) 100 mg PO BID Qty: 14 RF: 0 Augmentin 875-125 mg tablet 1 tab PO BID Qty: 14 RF: 0 oxycodone 5 mg tablet 5 mg PO Q12H Qty: 10 RF: 0 Senna Lax 8.6 mg tablet 8.6 mg PO DAILY Qty: 10 RF: 0 terbinafine HCl 250 mg tablet 250 mg PO DAILY 28 Days Qty: 30 RF: 0 Aspirin Low Dose 81 mg tablet,delayed release (DR/EC) 81 mg PO DAILY Qty: 30 RF: 3 Plavix 75 mg tablet 75 mg PO DAILY Qty: 30 RF: 3 furosemide 20 mg tablet 40 mg PO DAILY 30 Days Qty: 90 RF: 2 Discharge Orders: Discharge ED (Routine); Ordered 08/29/21 Ordered By: Herbert Mckeon Referrals: Cooper Martin DO [Primary Care Provider] - Discharge Diet: Usual diet Discharge Activity: Resume usual activity Patient Instructions: Opioid Safety Coding Level of Care Code ED [employer] Work[employer] for [employer]
[2021-08-29 10:18] LABS: Basophils # 0.1 10^3/uL (0.0-0.1); Basophils % 0.7 %; Eosinophils # 0.2 10^3/uL (0.0-0.8); Eosinophils % 3.5 %; Hematocrit 39.2 % (42.0-52.0); Hemoglobin 12.4 g/dL (11.7-16.6); Lymphocytes # 1.2 10^3/uL (0.8-4.8); Lymphocytes % 16.5 %; Mean Corpuscular HGB Conc 31.6 g/dL (30.0-36.0); Mean Corpuscular Hemoglobin 28.2 pg (28.0-34.0); Mean Corpuscular Volume 89.1 fl (80-94); Monocytes # 0.5 10^3/uL (0.2-0.9); Monocytes % 7.3 %; Neutrophils # 4.97 10^3/uL (1.8-7.7); Neutrophils % 71.6 %; Nucleated Red Blood Cells % 0 %; Platelet Count 224 10^3/cmm (130-400); Red Cell Distribution Width 15.4 % (12.1-15.1)
[2021-08-29 10:48] LABS: Anion Gap 11.7 (5-19); Blood Urea Nitrogen 12 mg/dL (8-23); Calcium 8.6 mg/dL (8.5-10.5); Carbon Dioxide 28 mmol/L (22-29); Chloride 106 mmol/L (98-107); Creatinine Clr Calc Pharmacy 75.2543; Glucose 87 mg/dL (65-115); Osmolality Calculated 293 mOsm/kg (285-295); Potassium 3.7 mmol/L (3.5-5.1); Sodium 142 mmol/L (136-145)
[2021-08-29 11:39] VITALS: PULSE 76; RESP 16; O2SAT 98
== END 2021-08-29 11:40 | disposition home or self-care (01) ==
PROVIDERS: Emergency Provider Family Medicine; PCP Emergency Medicine Emergency Medical Services
DX: R60.0 Localized edema (principal); L03.90 Cellulitis, unspecified; I80.00 Phlebitis and thrombophlebitis of superficial vessels of unspecified lower extremity; J44.9 Chronic obstructive pulmonary disease, unspecified; I10 Essential (primary) hypertension; Z87.891 Personal history of nicotine dependence
CPT/HCPCS: 80048; 85025; 93971; 99282

== ENCOUNTER 2021-09-18 07:06 | Outpatient (CLI) | payer OTHER, MEDICARE, SELFPAY ==
--- NOTE | 2021-09-18 07:22 | USCV_ITS ---
Hao Mckeon Age: 86 Gender: M : 1935 Exam Date: 09/18/2021 07:49 Ordering Phys: Cooper Martin DO Technologist: TARA Exam Location: [facility] – [place] Indication: CALCIFICATION NOTED ON XRAY Risk Factors: Previous Vascular Surgery: Right Brachial BP: / Left Brachial BP: / Right Left Velocity (cm/s) Spectral Plaque Velocity (cm/s) Spectral Plaque Syst/Diast Broadening Syst/Diast Broadening 102.70/10.50 Prox CCA 84.50 / 11.70 76.00/ 6.50 Mid CCA 104.30/ 18.90 56.70/ 8.50 Distal CCA 83.70 / 17.10 59.80/ 17.10 Prox ICA 111.40/ 32.00 259.40/60.30 Mid ICA 82.10 / 24.30 73.90/ 15.40 Distal ICA 85.80 / 28.00 74.60 ECA 94.00 3.41 ICA/CCA 0.79 Antegrade Vertebral Antegrade 54.30/ 17.10 cm/s 44.00/ 17.70 cm/s Bi Subclavian Bi 46.60 59.80 CONCLUSIONS Increaed velocity Right mid ICA with velocity suggesting moderate stenosis. Some of this may be due to tortousity. Recommend further evaluation with CTA. Proximal Right ICA stenosis <50%. Moderate calcified atheromatous plaque right carotid bulb/ICA. Left ICA stenosis <50%. Moderate calcified atheromatous plaque left carotid bulb/ICA. Normal antegrade Doppler flow noted in the right vertebral artery. Normal antegrade Doppler flow noted in the left vertebral artery. Hammad Lorenz MD (Electronically Signed) Final Date: 18 September 2021 17:04 S
== END 2021-09-18 07:07 | disposition home or self-care (01) ==
LOC: RAD 07:09
PROVIDERS: PCP Emergency Medicine Emergency Medical Services; Visit Provider Emergency Medicine Emergency Medical Services
DX: I65.23 Occlusion and stenosis of bilateral carotid arteries (principal)
CPT/HCPCS: 93880

== ENCOUNTER 2021-10-26 11:00 | Outpatient (CLI) | payer OTHER, SELFPAY ==
--- NOTE | 2021-10-26 11:07 | XR_ITS ---
WS: [id number] Exam: XR chest 2V* [id number] Date/Time of Exam: 10/26/2021 11:20 AM Reason For Exam: unproductive cough Comparison 08/25/2021. The lungs are hyperinflated and clear. Heart size is top limits normal. No pleural effusions. Regiona l bony elements are intact. XR/XR chest 2V* [id number] IMPRESSION: 1. Pulmonary hyperinflation most likely indicating obstructive lung disease. No acute process.
== END 2021-10-26 11:01 | disposition home or self-care (01) ==
PROVIDERS: PCP Emergency Medicine Emergency Medical Services; Visit Provider Internal Medicine Pulmonary Disease
DX: R05.9 Cough, unspecified (principal)
CPT/HCPCS: 71046

== ENCOUNTER → 2022-01-29 11:18 | Outpatient (BNVA) | payer OTHER, SELFPAY | PROVIDERS: PCP Emergency Medicine Emergency Medical Services; Visit Provider Internal Medicine Pulmonary Disease | DX: J44.9 Chronic obstructive pulmonary disease, unspecified (principal); H91.93 Unspecified hearing loss, bilateral; R93.89 Abnormal findings on diagnostic imaging of other specified body structures; R60.0 Localized edema; Z87.891 Personal history of nicotine dependence; I10 Essential (primary) hypertension; E03.9 Hypothyroidism, unspecified; R60.9 Edema, unspecified; I48.91 Unspecified atrial fibrillation | CPT/HCPCS: 99214 ==